=== PATIENT | female | born 1980 | race Caucasian/White ===

== ENCOUNTER 2017-02-16 09:52 | Emergency (ER) | payer OTHER ==
--- NOTE | 2017-02-16 10:37 | ED Physician Documentation ---
Headache - HISTORIAN Historian: patient - HPI Stated Complaint: migraine, nausea/vomiting Chief Complaint: Headache Additional Information: she has wildly fluc BS and last night it was 600 then 50, which she thinks caused her to have a "Migraine". she does not have migraine medicine at home. This headache is similar to all her head aches, she took opioids for this at home with no affect. she is also nauseated. Onset: hours Timing: gradual New Gradual Onset: No Exposure To: none Severity: mild Quality: similar to previous Associated Symptoms: sensitivity to light, nausea Preceding Symptoms: denies: visual disturbance Exacerbated By: light Further Comments: no - ROS NEURO/PSYCH: denies: confusion, anxiety EYES/ENT: denies: sore throat CVS/RESP: none GI/: denies: abdominal pain MS/SKIN/LYMPH: denies: muscle aches all systems neg except as marked: Yes - PAST HX Medical History: migraines Surgical History: noncontributory Immunizations: UTD Allergies/Adverse Reactions: Allergies Allergy/AdvReac Type Severity Reaction Status Date / Time No Known Allergies Allergy Verified 02/16/17 10:01 Home Medications: Ambulatory Orders Medication Instructions Recorded Levothyroxine Sodium [Levothroid] 100 mcg PO DAILY 02/06/13 Subcutaneous Insulin Pump [Omnipod] 21 units SUBCUT DAILY 08/25/15 Insulin Aspart [Novolog] 5 units SUBCUT AC15 03/27/16 Sertraline HCl [Zoloft] 100 mg PO D 03/27/16 Insulin Glargine,Hum.rec.anlog 25 unit SQ HS 09/21/16 [Lantus Solostar] Oxycodone HCl/Acetaminophen 1 tab PO QID 09/21/16 [Oxycodone-Acetaminophen 10-325] Pantoprazole Sodium [Protonix] 40 mg PO BID 09/21/16 - SOCIAL HX Smoking History: non-smoker Alcohol Use: none Drug Use: none - Family HX Family History: none - VITAL SIGNS Vital Signs: Vital Signs Temp Pulse Resp BP Pulse Ox 98.1 F 106 H 20 129/76 96 02/16/17 10:05 02/16/17 10:05 02/16/17 10:05 02/16/17 10:05 02/16/17 10:05 - REVIEWED ASSESSMENTS Nursing Assessment Reviewed: Yes Vitals Reviewed: Yes Progress - Results/Orders Results/Orders: we'll give her a blend of medicines that work for headaches, and she declares that she has a dark quiet room to go home to for the meds to work. Headache Physical Exam - EXAM General Appearance: no acute distress, alert EENT: eyes nml inspection, pharynx nml Neck: normal inspection Respiratory: no resp distress CVS: reg. 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, managed as type 1 Headache Qualifiers: Headache type: unspecified Headache chronicity pattern: acute headache Intractability: intractable Qualified Code(s): R51 - Headache Home Medications: Ambulatory Orders Levothyroxine Sodium [Levothroid] 100 mcg PO DAILY 02/06/13 Subcutaneous Insulin Pump [Omnipod] 21 units SUBCUT DAILY 08/25/15 Insulin Aspart [Novolog] 5 units SUBCUT AC15 03/27/16 Sertraline HCl [Zoloft] 100 mg PO D 03/27/16 Insulin Glargine,Hum.rec.anlog [Lantus Solostar] 25 unit SQ HS 09/21/16 Oxycodone HCl/Acetaminophen [Oxycodone-Acetaminophen 10-325] 1 tab PO QID Pantoprazole Sodium [Protonix] 40 mg PO BID 09/21/16 Condition: Good Disposition: 01 HOME, SELF-CARE Decision to Admit: NO Date of Decison to Admit: 02/16/17 Decision Time: 10:40
[2017-02-16] MEDS ORDERED: KETOROLAC TROMETHAMINE 60 MG/2 ML VIAL ONE (10:43)
[2017-02-16] MEDS ORDERED: METOCLOPRAMIDE HCL 5 MG TABLET ONE (10:44)
[2017-02-16] MEDS ORDERED: hydrOXYzine HCL 50 MG/ML VIAL IM ONE (10:47)
[2017-02-16] MEDS: KETOROLAC TROMETHAMINE 60 MG/2 ML VIAL IM ONE (10:55)
[2017-02-16] MEDS: PROMETHAZINE HCL 25 MG/ML VIAL IM ONE (10:55)
[2017-02-16] MEDS: METOCLOPRAMIDE HCL 5 MG TABLET PO ONE (10:55)
[2017-02-16] MEDS: hydrOXYzine HCL 50 MG/ML VIAL IM PRN (10:56)
[2017-02-16 11:29] VITALS: BP 112/67
== END 2017-02-16 11:27 | disposition home or self-care (01) ==
LOC: ED 09:52
DX: R51 Headache (principal)
CPT/HCPCS: J1885; J2550; J3410; 96372; 99283; 99284

== ENCOUNTER 2017-05-13 10:43 | Emergency (ER) | payer OTHER, MEDICAID ==
[2017-05-13] MEDS ORDERED: MAGNESIUM SULFATE ONE (12:11)
[2017-05-13 12:14] LABS: BASOPHILS % 0.5 (0.0-1.5); EOSINOPHILS % 1.2 % (0.0-6.8); MEAN CORPUSCULAR HEMOGLOBIN 29.9 pg (28.0-34.0); MEAN CORPUSCULAR VOLUME 86.3 fl (80.0-100.0); MONOCYTES % 2.4 % (0.0-11.0); NEUTROPHILS # 3.1 # k/uL (1.4-7.7)
[2017-05-13] MEDS: DEXAMETHASONE SOD PHOS 4 MG/ML VIAL IVP ONE (12:24)
[2017-05-13] MEDS: METOCLOPRAMIDE HCL 5 MG TABLET PO ONE (12:27)
[2017-05-13] MEDS: 0.9 % SODIUM CHLORIDE 1,000 ML IV ONE (12:27)
[2017-05-13 12:32] LABS: eGFR (African) > 60; eGFR (Non-African) > 60
[2017-05-13] MEDS: NALBUPHINE HCL 10 MG/1 ML IM ONE (13:55)
[2017-05-13] MEDS ORDERED: diphenhydrAMINE HCL 50 MG/ML VIAL ONE (14:54)
[2017-05-13] MEDS ORDERED: PROMETHAZINE HCL 25 MG/ML VIAL ONE (14:54)
[2017-05-13] MEDS: diphenhydrAMINE HCL 50 MG/ML VIAL IVP ONE (15:00)
[2017-05-13] MEDS: MAGNESIUM SULFATE IV STA ×2 (15:04)
[2017-05-13] MEDS: DEXTROSE 5% IV STA ×2 (15:04)
[2017-05-13] MEDS: PROMETHAZINE HCL 12.5 MG in 0.9 % SODIUM CHLORIDE 50 ML IV ONE (15:04)
[2017-05-13] MEDS: WATER IV STA ×2 (15:04)
[2017-05-13] MEDS: WATER IV ONE ×2 (17:19)
[2017-05-13] MEDS: DEXTROSE 5% IV ONE ×2 (17:19)
[2017-05-13] MEDS: MAGNESIUM SULFATE IV ONE ×2 (17:19)
[2017-05-13 17:23] VITALS: BP 118/80
--- NOTE | 2017-05-13 20:43 | Diagnostic Imaging Report ---
MARVEL KING [facility] [address] [facility] [address] [place], [place]. [address] Report Submission Date: May 13, 2017 3:41:32 PM CDT Patient Study Name: PRECIOUS SPANGLER Date: May 13, 2017 3:22:33 PM CDT Modality Type: CT\SR Gender: F Description: CT BRAIN W/O CONTRAST : 82 Institution: [facility] Physician: MARVEL KING CT brain without IV contrast Clinical history: Severe headache since yesterday Radiation dose DLP 357 No evidence of intracranial bleed, acute infarct, midline shift or hydrocephalus. No visible tumor mass. No visible skull fractures. Mastoid air cells and visible sinuses are clear. Impression: Normal CT brain without IV contrast Electronically signed on May 13, 2017 3:41:32 PM CDT by: Barry ESCOBEDO
--- NOTE | 2017-06-29 14:10 | ED Physician Documentation ---
Headache - HISTORIAN Historian: patient - HPI Stated Complaint: migraine Chief Complaint: Headache Additional Information: awoke this am -NO DIFFERENT THAN USUAL. usually has aura but awoke w/lozano. New Gradual Onset: No Exposure To: none Severity: mild, moderate Quality: similar to previous, pain Associated Symptoms: problems with vision, sensitivity to light, nausea. denies : vomiting Exacerbated By: light, noise, movement Further Comments: yes (pt has rx for oxycode gets xs at multi pharmacies- cleared w/DR OVERTON for tx plan - will tx but w/hold and controlled substance) - ROS NEURO/PSYCH: depression (perhaps mild). denies: confusion, anxiety EYES/ENT: denies: sore throat, difficulty swallowing CVS/RESP: denies: none GI/: denies: abdominal pain all systems neg except as marked: Yes (DM HYPOTHRYOID ANXIETY ) - PAST HX Medical History: no pertinent history ( ABOVE) Surgical History: other (LAP BAND PYL STENOSIS CO-SECT OPEN HEART FOR AORTIC STENOSIS GB CARPAL TUNNEL LT HIP) Allergies/Adverse Reactions: Allergies Allergy/AdvReac Type Severity Reaction Status Date / Time No Known Allergies Allergy Verified 06/01/17 15:14 Home Medications: Ambulatory Orders Medication Instructions Recorded Pantoprazole Sodium [Protonix] 40 mg PO BID 09/21/16 Cephalexin [Keflex] 500 mg PO QID #30 capsule 06/01/17 - SOCIAL HX Smoking History: non-smoker Alcohol Use: none Drug Use: none - Family HX Family History: none - VITAL SIGNS Vital Signs: Vital Signs Temp Pulse Resp BP Pulse Ox 98.0 F 82 16 118/80 99 05/13/17 16:10 05/13/17 16:10 05/13/17 16:10 05/13/17 16:10 05/13/17 16:10 - REVIEWED ASSESSMENTS Nursing Assessment Reviewed: Yes Vitals Reviewed: Yes ED Results Lab/Radiology - Lab Results Lab Results: Lab Results 05/13/17 05/13/17 12:10 12:10 WBC 4.30 K/ul K/ul (4.00-12.00) RBC 4.49 M/ul M/ul (3.90-5.20) Hgb 13.4 g/dL g/dL (12.0-16.0) Hct 38.7 % % (34.5-46.5) MCV 86.3 fl fl (80.0-100.0) MCH 29.9 pg pg (28.0-34.0) MCHC 34.6 g/dL g/dL (30.0-36.0) RDW 12.7 % % (11.3-14.3) Plt Count 216 K/mm3 K/mm3 (130-400) Neut % (Auto) 73.6 % % (39.0-79.0) Lymph % (Auto) 21.2 % % (16.0-50.0) [place] % (Auto) 2.4 % % (0.0-11.0) Eos % (Auto) 1.2 % % (0.0-6.8) Baso % (Auto) 0.5 (0.0-1.5) Neut # 3.1 # k/uL # k/uL (1.4-7.7) Lymph # 0.9 # k/uL # k/uL (0.6-4.0) [place] # 0.1 # k/uL # k/uL (0.0-0.9) Eos # 0.0 # k/uL # k/uL (0.0-0.6) Baso # 0.0 # k/uL # k/uL (0.0-0.5) Reactive Lymphs % 1.1 % % (0.0-5.0) Reactive Lymphs # 0.0 # k/uL # k/uL (0.0-0.8) Sodium 137 mmol/L mmol/L (136-145) Potassium 4.4 mmol/L mmol/L (3.5-5.0) Chloride 106 mmol/L mmol/L (98-110) Carbon Dioxide 32 mmol/L mmol/L (20-32) BUN 14 mg/dL mg/dL (10-26) Creatinine 0.5 mg/dL mg/dL (0.4-1.5) Estimated Creat Clear 266 Est GFR ( Amer) > 60 (60 - ) Est GFR (Non-Af Amer) > 60 (60 - ) Glucose 216 mg/dL H mg/dL (70-99) Calcium 9.6 mg/dL mg/dL (8.5-10.5) Total Bilirubin 1.1 mg/dL mg/dL (0.2-1.2) AST 16 U/L U/L (0-41) ALT 13 U/L U/L (0-45) Alkaline Phosphatase 87 U/L U/L (46-116) Total Protein 7.3 g/dL g/dL (6.0-8.5) Albumin 4.4 g/dL g/dL (3.0-5.5) - Orders Orders: ED Orders Category Date Time Status Place IV Lock 1T Care 05/13/17 12:[address] BRAIN W/O CONTRAST Stat Exams 05/13/17 Completed CBC/PLATELET/DIFF Routine Lab 05/13/17 12:10 Completed CMP Routine Lab 05/13/17 12:10 Completed 0.9 % Sodium Chloride [Normal Saline] 1,000 ml Med 05/13/17 11:55 Discontinued IV Q1H Dexamethasone Sod Phosphate [Decadron] Med 05/13/17 11:58 Discontinued 4 mg IVP NOW ONE Magnesium Sulfate Med 05/13/17 12:11 Discontinued 8 meq .ROUTE .STK-MED ONE Magnesium Sulfate 16.24 meq Med 05/13/17 15:00 Discontinued Dextrose 5 % in Water [D5w] 100 ml IV NOW Magnesium Sulfate 8 meq Med 05/13/17 11:56 Discontinued Dextrose 5 % in Water [D5w] 100 ml IV 1T Metoclopramide HCl [Reglan] Med 05/13/17 11:57 Discontinued 5 mg PO NOW ONE Nalbuphine HCl [Nubain] Med 05/13/17 13:46 Discontinued 15 mg IM NOW ONE Promethazine HCl [Phenergan] Med 05/13/17 14:54 Discontinued 25 mg .ROUTE .STK-MED ONE Promethazine HCl [Phenergan] 12.5 mg Med 05/13/17 14:54 Discontinued 0.9 % Sodium Chloride [Sodium Chloride] 50 ml IV NOW diphenhydrAMINE HCL [Benadryl] Med 05/13/17 15:00 Discontinued 25 mg IVP NOW ONE diphenhydrAMINE HCL [Benadryl] Med 05/13/17 14:54 Discontinued 50 mg .ROUTE .STK-MED ONE Headache Physical Exam - EXAM General Appearance: moderate distress EENT: no facial swelling Neck: normal inspection Respiratory: no resp distress, chest non-tender, breath sounds normal CVS: reg. rate & rhythm, heart sounds nml Abdomen: non-tender Skin: color nml, no rash. No: cyanosis, diaphoresis, pallor Extremitites: non-tender - NEURO/PSYCH Higher Functions: alert, nml speech, mood/affect nml Cranial: denies: facial droop, hearing deficit Sensorimotor: motor nml, sensation nml. denies: weakness, aphasia Discharge Clincal Impression: MIGRAINE CEPHALGIA Referrals: Tiffanie Art, PRN [Primary Care Provider] - 2 Days Home Medications: Ambulatory Orders Pantoprazole Sodium [Protonix] 40 mg PO BID 09/21/16 Cephalexin [Keflex] 500 mg PO QID #30 capsule 06/01/17 Comments: responded satis to tx Condition: Good Disposition: 01 HOME, SELF-CARE Decision to Admit: NO Decision Time: 16:04
== END 2017-05-13 16:10 | disposition home or self-care (01) ==
LOC: ED 10:43
DX: G43.809 Other migraine, not intractable, without status migrainosus (principal)
CPT/HCPCS: 70450; 80053; 85025; J1100; J1200; J2300; J2550; J3475; J7030; 96365; 96372; 96375; 99283; 99284; S1016

== ENCOUNTER 2017-06-01 14:40 | Emergency (ER) | payer OTHER, MEDICAID ==
[2017-06-01 15:13] VITALS: BP 130/70
[2017-06-01] MEDS ORDERED: DIPH,PERTUSS(ACELL),TET VAC/PF 0.5 ML DISP.SYRIN IM ONE (15:16)
--- NOTE | 2017-06-01 15:35 | ED Physician Documentation ---
General Adult - HISTORIAN Historian: patient, child - HPI Stated Complaint: laceration Chief Complaint: Laceration/Recheck/Suture Additional Information: cutting carpet box knife lac lt forearm flexor surface approx 1.2 cm -occ approx 1000hrs. Timing: still present (continued to use arm w/open wound) Severity: mild, moderate - ROS CONST: no problems CVS/RESP: none GI/: none MS/SKIN/LYMPH: none NEURO/PSYCH: denies: headache, fainting, dizziness - PAST HX Past History: other (diabetes lo thryoid congenital pyloric stenosis) Immunizations: denies: tetanus, UTD Allergies/Adverse Reactions: Allergies Allergy/AdvReac Type Severity Reaction Status Date / Time No Known Allergies Allergy Verified 06/01/17 15:14 Home Medications: Ambulatory Orders Medication Instructions Recorded Pantoprazole Sodium [Protonix] 40 mg PO BID 09/21/16 Cephalexin [Keflex] 500 mg PO QID #30 capsule 06/01/17 - SOCIAL HX Smoking History: non-smoker Alcohol Use: none Drug Use: none - FAMILY HX Family History: No - VITAL SIGNS Vital Signs: Vital Signs Temp Pulse Resp BP Pulse Ox 111 H 14 130/70 96 06/01/17 14:46 06/01/17 14:46 06/01/17 14:46 06/01/17 14:46 - REVIEWED ASSESSMENTS Nursing Assessment Reviewed: Yes Vitals Reviewed: Yes Procedures Wound Location: upper extremity Wound's Depth, Shape: superficial, linear Wound Explored: wkound to sink pt washed irrigated w/soap water copiously then cleansed and irrigated w/betadine Betadine Prep?: Yes Wound Repaired With: steri-strips, Dermabond Sterile Dressing Applied?: Yes Splint Applied?: No Sling Applied?: No ED Results Lab/Radiology - Orders Orders: ED Orders Category Date Time Status Diph,Pertuss(Acell),Tet Vac/Pf [Adacel] Med 06/01/17 15:16 Discontinued 0.5 ml IM .STK-MED ONE General Adult Physical Exam - PHYSICAL EXAM GENERAL APPEARANCE: mild distress RESPIRATORY: no resp distress, chest non-tender, breath sounds normal. No: wheezes, rales, rhonchi CVS: reg rate & rhythm, heart sounds normal ABDOMEN: soft, non-tender EXTREMITIES: other (aforementioned lac lt flexorsurface mid forearm) NEURO: oriented X3, CN's nml as tested Discharge Clincal Impression: Laceration of left forearm Referrals: Tiffanie Art, PRN [Primary Care Provider] - 2 Days Home Medications: Ambulatory Orders Pantoprazole Sodium [Protonix] 40 mg PO BID 09/21/16 Cephalexin [Keflex] 500 mg PO QID #30 capsule 06/01/17 Comments: keep clean dry do not remove steri strips for approx 5 days. adacel o.5cc adm per nurse as ordered Condition: Good Disposition: 01 HOME, SELF-CARE Decision to Admit: NO Decision Time: 15:34
== END 2017-06-01 15:23 | disposition home or self-care (01) ==
LOC: ED 14:40
DX: S51.812A Laceration without foreign body of left forearm, initial encounter (principal); X58.XXXA Exposure to other specified factors, initial encounter; Y93.9 Activity, unspecified; Y99.9 Unspecified external cause status
CPT/HCPCS: 12001; 90471; 90715; 99283

== ENCOUNTER 2017-07-22 08:41 | Outpatient (CLI) | payer OTHER | END 2017-07-22 08:42 | LOC: LAB 08:41 | PROVIDERS: ATTEND Internal Medicine | DX: E24.9 Cushing's syndrome, unspecified (principal) | CPT/HCPCS: 36415; 82533 ==

== ENCOUNTER 2017-09-28 13:26 | Emergency (ER) | payer OTHER ==
--- NOTE | 2017-09-28 13:51 | ED Physician Documentation ---
Lower Extremity Injury - HISTORIAN Historian: patient, child - HPI Stated Complaint: L foot pain Chief Complaint: Lower Extremity Injury Additional Information: heavy cup dropped dorsum lt foot 2 d ago=-prog pain.. bs high past few daYS- 400 today Where: home Severity: moderate Context: direct blow Associated Symptoms:: tingling (slight lt great tod and phalynx) Modifying Factors:: pain on movement - ROS CONST: no problems CVS/RESP: none GI/: denies: problems urinating MS/SKIN/LYMPH: none NEURO: denies: headache, head injury - PAST HX Past History: diabetes Type 1, other (gerd ch back pain) Allergies/Adverse Reactions: Allergies Allergy/AdvReac Type Severity Reaction Status Date / Time No Known Allergies Allergy Verified 09/28/17 13:46 Home Medications: Ambulatory Orders Medication Instructions Recorded Pantoprazole Sodium [Protonix] 40 mg PO BID 09/21/16 Cephalexin [Keflex] 500 mg PO QID #30 capsule 06/01/17 Insulin Aspart [Novolog Flexpen] 150 - 600 09/28/17 Insulin Glargine,Hum.rec.anlog 40 09/28/17 [Lantus Solostar] PARoxetine HCL [Paxil] 09/28/17 Ranitidine HCl [Zantac] PRN MDD 150 mg 09/28/17 - SOCIAL HX Smoking History: non-smoker Alcohol Use: none Drug Use: none - FAMILY HX Family History: no significant history - VITAL SIGNS Vital Signs: Vital Signs Temp Pulse Resp BP Pulse Ox 98.3 F 93 H 19 127/73 95 09/28/17 13:27 09/28/17 13:27 09/28/17 13:27 09/28/17 13:27 09/28/17 13:27 - REVIEWED ASSESSMENTS Nursing Assessment Reviewed: Yes Vitals Reviewed: Yes ED Results Lab/Radiology - Radiology Radiology Impressions: foot = no fracture-suspect bs 400 aggravates - Orders Orders: ED Orders Category Date Time Status FOOT 3 VIEWS OR MORE [RAD] Stat Exams 09/28/17 Completed Lower Extremities Injury Phy - Physical Exam General Appearance: other (rt foot pain) Gait: limited by pain Neuro/Vascular/Tendon: no vascular compromise, motor nml, sensation nml. No: abnml color, abnml warmth, abnml cap refill Head/ENT: nml inspection Neck/Back: nml inspection, non-tender Resp/CVS: chest non-tender, breath sounds nml, heart sounds nml Abdomen: non-tender Discharge Clincal Impression: contusion lt foot, uncontrolled diabetes-w/neuropathy, hx recent thrush-oral Referrals: Tiffanie Art PRN [Primary Care Provider] - 2 Days Comments: need diabetic control Condition: Fair Disposition: 01 HOME, SELF-CARE Decision to Admit: NO Decision Time: 14:23
--- NOTE | 2017-09-28 14:18 | Diagnostic Imaging Report ---
MARVEL KING [facility] [address] [address] Report Submission Date: Sep 28, 2017 2:06:52 PM CDT Patient Study Name: PRECIOUS SPANGLER Date: Sep 28, 2017 1:55:00 PM CDT Modality Type: CR Gender: F Description: LOWER EXTREMITY : 82 Institution: [facility] Physician: MARVEL KING Examination: Plain film foot History: Injury Findings: 3 views of the foot demonstrates normal cortical margins. No fracture or dislocation. Posterior calcaneal spur. No soft tissue swelling. No joint effusion. Impression: No acute osseous process. Electronically signed on Sep 28, 2017 2:06:52 PM CDT by: Joseph ESCOBEDO
[2017-09-28 14:36] VITALS: BP 100/60
== END 2017-09-28 14:32 | disposition home or self-care (01) ==
LOC: ED 13:26
DX: S90.32XA Contusion of left foot, initial encounter (principal); X58.XXXA Exposure to other specified factors, initial encounter; Y93.9 Activity, unspecified; Y99.9 Unspecified external cause status; E11.40 Type 2 diabetes mellitus with diabetic neuropathy, unspecified
CPT/HCPCS: 73630; 99283

== ENCOUNTER 2017-10-17 14:29 | Emergency (ER) | payer OTHER ==
[2017-10-17] MEDS ORDERED: 0.9 % SODIUM CHLORIDE 1,000 ML IV ONE ×2 (14:55→15:11)
[2017-10-17] MEDS ORDERED: ONDANSETRON HCL/PF 4 MG/ 2ML VIAL ONE (14:55)
[2017-10-17] MEDS ORDERED: ONDANSETRON HCL/PF 4 MG/ 2ML VIAL IVP ONE (15:06)
[2017-10-17] MEDS ORDERED: BUTORPHANOL TARTRATE 2 MG/ML VIAL IV ONE (15:11)
[2017-10-17 15:27] LABS: BASOPHILS % 0.2 (0.0-1.5); EOSINOPHILS % 0.3 % (0.0-6.8); MEAN CORPUSCULAR HEMOGLOBIN 28.7 pg (28.0-34.0); MEAN CORPUSCULAR VOLUME 87.1 fl (80.0-100.0); MONOCYTES % 2.7 % (0.0-11.0); NEUTROPHILS # 5.5 # k/uL (1.4-7.7)
[2017-10-17 15:45] LABS: eGFR (African) > 60; eGFR (Non-African) > 60
[2017-10-17] MEDS ORDERED: HYDROcodone /APAP 5/325 1 EACH TABLET PO ONE (16:57)
--- NOTE | 2017-10-17 17:01 | ED Physician Documentation ---
General Adult - HISTORIAN Historian: patient - HPI Stated Complaint: nausea, GARCIA, body aches Chief Complaint: General Adult Additional Information: nausea headache ache all over. pt is severe diabetic very hard to control but bs now under 200 and was at home this am. pt is on oxycodone 10/325 tid x 1 year and is out till in am. suspect pain receptors up graded severly Onset: days ago (2) Timing: still present Severity: moderate (assoc nausea headache) - ROS CONST: weakness EYES/ENT: denies: problems with vision CVS/RESP: none GI/: abdominal pain, nausea MS/SKIN/LYMPH: none, neck pain, joint pain (ache all over) NEURO/PSYCH: headache, depression. denies: difficulty walking, difficulty with speech, anxiety - PAST HX Past History: other (diabetes lko thryoid) Other History: diabetes Type 1 Surgeries/Procedures: cholecystectomy, other (aortic repain pyloric stenosis) Immunizations: UTD Allergies/Adverse Reactions: Allergies Allergy/AdvReac Type Severity Reaction Status Date / Time No Known Allergies Allergy Verified 10/17/17 14:51 Home Medications: Ambulatory Orders Medication Instructions Recorded Pantoprazole Sodium [Protonix] 40 mg PO BID 09/21/16 Insulin Aspart [Novolog Flexpen] 150 - 600 units SUBCUT AC15 09/28/17 Insulin Glargine,Hum.rec.anlog 40 units SUBCUT HS 09/28/17 [Lantus Solostar] PARoxetine HCL [Paxil] 10 mg PO DAILY 09/28/17 Ranitidine HCl [Zantac] 75 mg PO DAILY PRN MDD 150 mg 09/28/17 - SOCIAL HX Smoking History: non-smoker Alcohol Use: none Drug Use: none - FAMILY HX Family History: No - VITAL SIGNS Vital Signs: Vital Signs Temp Pulse Resp BP Pulse Ox 99.2 F 122 H 18 105/66 98 10/17/17 14:45 10/17/17 14:45 10/17/17 14:45 10/17/17 14:45 10/17/17 14:45 - REVIEWED ASSESSMENTS Nursing Assessment Reviewed: Yes Vitals Reviewed: Yes ED Results Lab/Radiology - Lab Results Lab Results: Lab Results 10/17/17 10/17/17 10/17/17 15:19 15:19 15:18 WBC 6.30 K/ul K/ul (4.00-12.00) RBC 4.82 M/ul M/ul (3.90-5.20) Hgb 13.8 g/dL g/dL (12.0-16.0) Hct 42.0 % % (34.5-46.5) MCV 87.1 fl fl (80.0-100.0) MCH 28.7 pg pg (28.0-34.0) MCHC 32.9 g/dL g/dL (30.0-36.0) RDW 12.4 % % (11.3-14.3) Plt Count 221 K/mm3 K/mm3 (130-400) Neut % (Auto) 87.6 % H % (39.0-79.0) Lymph % (Auto) 8.3 % L % (16.0-50.0) [place] % (Auto) 2.7 % % (0.0-11.0) Eos % (Auto) 0.3 % % (0.0-6.8) Baso % (Auto) 0.2 (0.0-1.5) Neut # (Auto) 5.5 # k/uL # k/uL (1.4-7.7) Lymph # (Auto) 0.5 # k/uL L # k/uL (0.6-4.0) [place] # (Auto) 0.2 # k/uL # k/uL (0.0-0.9) Eos # (Auto) 0.0 # k/uL # k/uL (0.0-0.6) Baso # (Auto) 0.0 # k/uL # k/uL (0.0-0.5) Reactive Lymphs % 0.9 % % (0.0-5.0) Reactive Lymphs # 0.1 # k/uL # k/uL (0.0-0.8) PT 11.0 Seconds Seconds (9.4-11.6) INR 1.05 (0.9-1.2) Sodium 129 mmol/L L mmol/L (136-145) Potassium 4.0 mmol/L mmol/L (3.5-5.1) Chloride 97 mmol/L L mmol/L (98-107) Carbon Dioxide 25 mmol/L mmol/L (22-30) BUN 9 mg/dL mg/dL (7-17) Creatinine 0.60 mg/dL mg/dL (0.52-1.04) Estimated Creat Clear 216 Est GFR ( Amer) > 60 (60 - ) Est GFR (Non-Af Amer) > 60 (60 - ) Glucose 180 mg/dL H mg/dL (74-106) Calcium 8.5 mg/dL mg/dL (8.4-10.2) Total Bilirubin 1.5 mg/dL H mg/dL (0.2-1.3) AST 63 U/L H U/L (15-46) ALT 58 U/L U/L (13-69) Alkaline Phosphatase 101 U/L U/L (38-126) Total Protein 7.1 g/dL g/dL (6.3-8.2) Albumin 3.6 g/dL g/dL (3.5-5.0) - Orders Orders: ED Orders Category Date Time Status Place IV Lock 1T Care 10/17/17 15:06 Active CHEST P.A.&LAT 2 VIEWS [RAD] Stat Exams 10/17/17 Taken CBC/PLATELET/DIFF Routine Lab 10/17/17 15:19 Completed CMP Routine Lab 10/17/17 15:18 Completed INFLUENZA A&B Routine Lab 10/17/17 15:11 Ordered INFLUENZA A&B Stat Lab 10/17/17 15:58 Ordered PT-INR Routine Lab 10/17/17 15:19 Completed URINALYSIS Routine Lab 10/17/17 Ordered 0.9 % Sodium Chloride [Normal Saline] 1,000 ml Med 10/17/17 14:55 Discontinued IV .STK-MED 0.9 % Sodium Chloride [Normal Saline] 1,000 ml Med 10/17/17 15:11 Discontinued IV Q1H Butorphanol Tartrate [Stadol] Med 10/17/17 15:11 Discontinued 2 mg IV NOW ONE HYDROcodone /APAP 5/325 [[place] 5/325] Med 10/17/17 16:57 Once 2 each PO NOW ONE Ondansetron HCl/Pf [Zofran 4 mg/2 ml] Med 10/17/17 14:55 Discontinued 4 mg .ROUTE .STK-MED ONE Ondansetron HCl/Pf [Zofran 4 mg/2 ml] Med 11/18/17 15:06 Discontinued 4 mg IVP NOW ONE General Adult Physical Exam - PHYSICAL EXAM GENERAL APPEARANCE: moderate distress EENT: eye inspection normal NECK: normal inspection, supple. No: thyromegaly RESPIRATORY: no resp distress, chest non-tender, breath sounds normal CVS: reg rate & rhythm, heart sounds normal ABDOMEN: soft, tenderness (very slight genl no guarding) SKIN: warm/dry, normal color. No: cyanosis, diaphoresis, jaundice EXTREMITIES: non-tender, normal range of motion, no evidence of injury, no edema NEURO: oriented X3, motor nml, sensation nml, mood/affect nml Discharge Clincal Impression: viral flu, chronic pain pt Referrals: Primary Doctor,No [Primary Care Provider] - 2 Days Comments: rec attempt get off oxycodone Condition: Good Disposition: 01 HOME, SELF-CARE Decision to Admit: NO Decision Time: 17:08
[2017-10-17 17:25] VITALS: BP 113/67
--- NOTE | 2017-10-17 17:35 | Diagnostic Imaging Report ---
MARVEL KING [facility] [address] [facility] [address] [place], [place]. 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 History: Evaluate lung cespedes. Comparison exam: None provided Findings: PA lateral chest demonstrate a normal cardiac and mediastinal silhouette. Sternotomy wires. No focal infiltrate. No blunting of the costophrenic margins. Osseous structures are appropriate for age. Impression: No acute pulmonary process. Electronically signed on Oct 17, 2017 3:48:25 PM WEB MERCHANT by: Joseph ESCOBEDO
== END 2017-10-17 17:20 | disposition home or self-care (01) ==
LOC: ED 14:29
DX: J11.1 Influenza due to unidentified influenza virus with other respiratory manifestations (principal); G89.29 Other chronic pain
CPT/HCPCS: 71020; 80053; 85025; 85610; 87400; A9270; J0595; J2405; J7030; 96361; 96374; 96375; 99283; S1016

== ENCOUNTER 2017-12-09 14:04 | Emergency (ER) | payer OTHER ==
[2017-12-09 14:36] VITALS: BP 135/83
--- NOTE | 2017-12-09 14:55 | ED Physician Documentation ---
Sore Throat/Dental Pain - HISTORIAN Historian: patient - HPI Stated Complaint: Sore Throat Chief Complaint: Sore Throat Additional Information: sore throat x few days, had white spot on tonsil few days ago, ears feel full. no other complaints, family member with strep. Onset: days ago Context: Possible Infection Associated Symptoms: sore throat, mild. denies: fever, chills Worsened By: nothing Further Comments: no - ROS CONST: no problems CVS/RESP: none GI/: denies: problems urinating, nausea, vomiting MS/SKIN/LYMPH: denies: muscle aches, rash NEURO/PSYCH: none - PAST HX Past History: none Other History: diabetes Type 1 Allergies/Adverse Reactions: Allergies Allergy/AdvReac Type Severity Reaction Status Date / Time No Known Allergies Allergy Verified 12/09/17 14:37 Home Medications: Ambulatory Orders Medication Instructions Recorded Insulin Aspart [Novolog Flexpen] 150 - 600 units SUBCUT AC15 09/28/17 PARoxetine HCL [Paxil] 60 mg PO DAILY 09/28/17 Gabapentin [Neurontin] 300 mg PO TID 12/09/17 Insulin Glargine,Hum.rec.anlog 35 units SQ HS 12/09/17 [Lantus Solostar] Levothyroxine Sodium [Unithroid] 100 mcg PO DAILY 12/09/17 - SOCIAL HX Smoking History: non-smoker Alcohol Use: none Drug Use: none - FAMILY HX Family History: No - VITAL SIGNS Vital Signs: Vital Signs Temp Pulse Resp BP Pulse Ox 98.2 F 128 H 20 135/83 95 12/09/17 14:10 12/09/17 14:10 12/09/17 14:10 12/09/17 14:10 12/09/17 14:10 - REVIEWED ASSESSMENTS Nursing Assessment Reviewed: Yes Vitals Reviewed: Yes ED Results Lab/Radiology - Lab Results Lab Results: RS (-) Flu (-) - Orders Orders: ED Orders Category Date Time Status INFLUENZA A&B Stat Lab 12/09/17 14:35 Ordered Rapid Strep [GRP A STREP SCREEN] Stat Lab 12/09/17 Ordered Sore throat Physical Exam - EXAM General Appearance: no acute distress, alert Head/Neck: head nml inspection, trachea midline, no lymphadenopathy, thyroid nml. No: neck mass/swelling Eyes: eyes nml inspection Mouth/Throat: lips nml, gums nml, pharynx nml, voice nml, no drooling, no air way problems, no thrush, membranes nml Ear/Nose: nml inspection Respiratory: no resp. distress Abdomen: soft Extremities: non-tender Skin: warm/dry, normal color Neuro/Psych: oriented x3, mood/affect nml Discharge Clincal Impression: Common cold virus, Viral URI Referrals: Tiffanie Art, PRN [Primary Care Provider] - 2 Days Condition: Stable Disposition: 01 HOME, SELF-CARE Decision to Admit: NO Date of Decison to Admit: 12/09/17 Decision Time: 14:56
== END 2017-12-09 15:09 | disposition home or self-care (01) ==
LOC: ED 14:04
DX: J06.9 Acute upper respiratory infection, unspecified (principal)
CPT/HCPCS: 87070; 87400; 87880; 99282

== ENCOUNTER 2018-03-27 14:49 | Emergency (ER) | payer OTHER ==
[2018-03-27 15:04] VITALS: BP 121/91
--- NOTE | 2018-03-27 15:50 | ED Physician Documentation ---
Lower Extremity Injury - HISTORIAN Historian: patient - HPI Stated Complaint: L foot paint Chief Complaint: Foot Injury Additional Information: Hand weights fell on foot two days ago. X rays at [facility] yesterday said to be negative but foot still hurts. Also has lac's on first toe from broken make up bottle. Prescribed keflex yesterday but has not taken it. Takes three percocet daily for chronic pain. Wants additional pain med for foot. In lieu of that, will stop percocet if she is give a few vicodin for her foot pain. HX lap band, DM. - ROS CONST: no problems - PAST HX Past History: diabetes Type 1, other (chronic pain) Allergies/Adverse Reactions: Allergies Allergy/AdvReac Type Severity Reaction Status Date / Time No Known Allergies Allergy Verified 03/27/18 15:05 Home Medications: Ambulatory Orders Medication Instructions Recorded Insulin Aspart [Novolog Flexpen] 150 - 600 units SUBCUT AC15 09/28/17 PARoxetine HCL [Paxil] 60 mg PO DAILY 09/28/17 Insulin Glargine,Hum.rec.anlog 35 units SQ HS 12/09/17 [Lantus Solostar] Levothyroxine Sodium [Unithroid] 100 mcg PO DAILY 12/09/17 Cyclobenzaprine HCl [Flexeril] 1 tab PO PRN PRN 03/27/18 Hydrocodone/Acetaminophen [[place] 1 tab PO Q4H PRN #10 03/27/18 5-325 Tablet] LORazepam [Ativan] 1 tab PO PRN PRN 03/27/18 Oxycodone HCl/Acetaminophen 1 tab PO PRN PRN 03/27/18 [Percocet 2.5/325] - SOCIAL HX Smoking History: cigarettes - FAMILY HX Family History: no significant history - VITAL SIGNS Vital Signs: Vital Signs Temp Pulse Resp BP Pulse Ox 97.2 F L 120 H 120 H 121/91 96 03/27/18 14:55 03/27/18 14:55 03/27/18 14:55 03/27/18 14:55 03/27/18 14:55 - REVIEWED ASSESSMENTS Nursing Assessment Reviewed: Yes Vitals Reviewed: Yes Progress - Progress Progress: Patient Study Name: PRECIOUS SPANGLER Date: Mar 27, 2018 3:07:35 PM CDT Modality Type: DX Gender: F Description: LOWER EXTREMITY : 82 Institution: [facility] Physician: TOMAS FUENTES - ER Left foot, 3 views History: Foot pain, attention 1st toe Findings: The osseous, joint and soft tissue structures are normal. Impression: Normal. Electronically signed on Mar 27, 2018 3:35:48 PM CDT by: Jose Tomas ED Results Lab/Radiology - Orders Orders: ED Orders Category Date Time Status XRAY FOOT [FOOT 3 VIEWS OR MORE] [RAD] Stat Exams 03/27/18 Ordered Lower Extremities Injury Phy - Physical Exam General Appearance: mild distress, anxious, other (2 cm healing lac plantar surface 1st toe. Irregular 1.5 cm lac dorsal surface 1st toe medial to nail. Bth clean ) Hips: bilateral hip: normal range of motion (gait), no evidence of injury Legs: bilateral: normal inspection, no evidence of injury Knees: bilateral: normal inspection, no evidence of injury Ankle: bilateral: normal inspection, no evidence of injury Foot: right foot: normal inspection, no evidence of injury, left foot: normal range of motion, nail injury (subungual ecchymosis), swelling (dorsal foot) Gait: antalgic gait Neuro/Vascular/Tendon: no vascular compromise, motor nml, sensation nml Head/ENT: nml inspection Neck/Back: nml inspection Resp/CVS: no resp. distress Discharge Clincal Impression: Contusion of foot, left Qualifiers: Encounter type: initial encounter Qualified Code(s): S90.32XA - Contusion of left foot, initial encounter Prescriptions: Hydrocodone/Acetaminophen [[place] 5-325 Tablet] 1 tab PO Q4H PRN #10 PRN Reason: Pain Referrals: Tiffanie Art PRN [Primary Care Provider] - 2 Days Condition: Good Disposition: 01 HOME, SELF-CARE Decision to Admit: NO Decision Time: 15:50
--- NOTE | 2018-03-27 17:12 | Diagnostic Imaging Report ---
[facility] [address] [facility].[address] [address] Report Submission Date: Mar 27, 2018 3:35:48 PM CDT Patient Study Name: PRECIOUS SPANGLER Date: Mar 27, 2018 3:07:35 PM CDT Modality Type: DX Gender: F Description: LOWER EXTREMITY : 82 Institution: [facility] Physician: TOMAS FUENTES Left foot, 3 views History: Foot pain, attention 1st toe Findings: The osseous, joint and soft tissue structures are normal. Impression: Normal. Electronically signed on Mar 27, 2018 3:35:48 PM CDT by: Jose ESCOBEDO
== END 2018-03-27 15:50 | disposition home or self-care (01) ==
LOC: ED 14:49
DX: S90.32XA Contusion of left foot, initial encounter (principal); Y92.9 Unspecified place or not applicable
CPT/HCPCS: 73630; 99283

== ENCOUNTER 2018-04-28 11:17 | Emergency (ER) | payer OTHER ==
[2018-04-28] MEDS ORDERED: 0.9 % SODIUM CHLORIDE 1,000 ML IV ONE ×2 (11:33→11:34)
--- NOTE | 2018-04-28 11:47 | ED Physician Documentation ---
General Adult - HISTORIAN Historian: patient - HPI Stated Complaint: elevated glucose Chief Complaint: General Adult Onset: days ago (3) Timing: still present Severity: moderate Further Comments: yes (Pt is a 38 yo female with DM Type I and hx ketoacidosis, who ran out of insulin several days ago and has had trouble getting her insurance to authorize a refill. Pt can refill in 2 days, and was trying to make it till then, but has been getting progressively ill. Pt "feels bad all over," she has been eating and drinking and voiding a lot, she says, and now also has nausea and a headache. She has been getting a little short of breath. Other hx includes hypothyroidism and heart surgery in the s to correct supraventricular aortic stenosis. Pt is taking Cipro for recent sinus infection.) - ROS CONST: weakness, other (malaise) EYES/ENT: other (recent sinus infection) CVS/RESP: shortness of breath (mild, occasional) GI/: problems urinating (urinary frequency), vomiting, nausea MS/SKIN/LYMPH: none NEURO/PSYCH: headache (mild) - PAST HX Past History: other (DM Type I with hx ketoacidosis, ) Allergies/Adverse Reactions: Allergies Allergy/AdvReac Type Severity Reaction Status Date / Time No Known Allergies Allergy Verified 04/28/18 12:42 Home Medications: Ambulatory Orders Medication Instructions Recorded Insulin Aspart [Novolog Flexpen] 150 - 600 units SUBCUT AC15 09/28/17 PARoxetine HCL [Paxil] 60 mg PO DAILY 09/28/17 Insulin Glargine,Hum.rec.anlog 40 units SQ HS 12/09/17 [Lantus Solostar] Levothyroxine Sodium [Unithroid] 100 mcg PO DAILY 12/09/17 Cyclobenzaprine HCl [Flexeril] 1 tab PO PRN PRN 03/27/18 LORazepam [Ativan] 1 tab PO PRN PRN 03/27/18 Oxycodone HCl/Acetaminophen 1 tab PO PRN PRN 03/27/18 [Percocet 2.5/325] Ciprofloxacin HCl [Cipro] 04/28/18 Fluconazole [Diflucan] 150 mg PO D 04/28/18 Ondansetron HCl Rapdis [Zofran ODT] 4 mg PO PRN PRN 04/28/18 - SOCIAL HX Smoking History: non-smoker - FAMILY HX Family History: No (Unk) - VITAL SIGNS Vital Signs: Vital Signs Temp Pulse Resp BP Pulse Ox 121/91 03/27/18 15:50 Progress - Progress Progress: NS 1 L IVF x 2 Zofran 4 mg IV ABG: pH: 7.15 pCO2: 26; pO2: 85; HCO3: 10.6; B.E.: -18.2; TCO2: 9.9; sAO2 : 96.7 Phenergan 25 mg IV (in IVF) Regular insulin 10 units IV Toradol 15 mg IV Insulin drip @ 12 units/hr transfer to [facility]. Dr. Jules Padilla. ED Results Lab/Radiology - Orders Orders: ED Orders Category Date Time Status Arterial Blood Gas 1T Care 04/28/18 11:[address] IV Lock 1T Care 04/28/18 11:34 Active CBC/PLATELET/DIFF Routine Lab 04/28/18 Ordered CMP Routine Lab 04/28/18 Ordered 0.9 % Sodium Chloride [Normal Saline] 1,000 ml Med 04/28/18 11:33 Discontinued IV .STK-MED 0.9 % Sodium Chloride [Normal Saline] 1,000 ml Med 04/28/18 11:34 Active IV Q1H General Adult Physical Exam - PHYSICAL EXAM GENERAL APPEARANCE: moderate distress EENT: eye inspection normal, pharynx normal NECK: normal inspection, supple RESPIRATORY: no resp distress, chest non-tender, breath sounds normal CVS: heart sounds normal, tachycardia ABDOMEN: soft, normal bowel sounds, no distension, non-tender BACK: normal inspection, no CVA tenderness SKIN: warm/dry, normal color EXTREMITIES: non-tender, normal range of motion, no evidence of injury NEURO: oriented X3, motor nml, sensation nml Discharge Clincal Impression: Diabetic Ketoacidosis Referrals: Tiffanie Art PRN [Primary Care Provider] - Condition: Stable Disposition: 02 XFER [facility] Decision to Admit: NO Decision Time: 12:43
[2018-04-28] MEDS ORDERED: ONDANSETRON HCL/PF 4 MG/ 2ML VIAL IVP ONE (11:48)
[2018-04-28 11:55] LABS: BASOPHILS % 0.3 (0.0-1.5); EOSINOPHILS % 0.3 % (0.0-6.8); MEAN CORPUSCULAR HEMOGLOBIN 29.1 pg (28.0-34.0); MEAN CORPUSCULAR VOLUME 92.2 fl (80.0-100.0); MONOCYTES % 2.1 % (0.0-11.0); NEUTROPHILS # 8.6 # k/uL (1.4-7.7)
[2018-04-28 12:08] LABS: eGFR (African) > 60; eGFR (Non-African) > 60
[2018-04-28] MEDS ORDERED: INSULIN REGULAR, HUMAN 100 UNIT/ML 3ML VIAL IV ONE (12:11)
[2018-04-28] MEDS ORDERED: POTASSIUM CHLORIDE 20 MEQ TABLET.ER PO ONE (12:12)
[2018-04-28] MEDS ORDERED: PROMETHAZINE HCL 25 MG/ML VIAL ONE (12:25)
[2018-04-28] MEDS ORDERED: PROMETHAZINE HCL 25 MG in 0.9 % SODIUM CHLORIDE 50 ML IV ONE (12:26)
[2018-04-28] MEDS ORDERED: INSULIN REGULAR, HUMAN 100 UNIT in 0.9 % SODIUM CHLORIDE 100 ML IV ONE ×2 (12:39)
[2018-04-28] MEDS ORDERED: KETOROLAC TROMETHAMINE 30 MG/1ML VIAL IVP ONE (13:31)
[2018-04-28 14:22] VITALS: BP 113/72
[2018-04-28 14:30] LABS: APPEARANCE,URINE CLEAR (CLEAR); COLOR,URINE YELLOW (YELLOW)
[2018-04-28 14:31] LABS: OCCULT BLOOD,URINE TRACE-LYSED (NEGATIVE); UROBILINOGEN URINE 0.2 Eu (0.2-1.0)
== END 2018-04-28 14:15 | disposition short-term general hospital (02) ==
LOC: ED 11:17
DX: E10.10 Type 1 diabetes mellitus with ketoacidosis without coma (principal)
CPT/HCPCS: 80053; 81002; 85025; J1815; J1885; J2405; J2550; J7030; 96365; 96367; 96374; 96375; 99285; S1016

== ENCOUNTER 2018-05-13 14:48 | Emergency (ER) | payer OTHER ==
[2018-05-13] MEDS ORDERED: KETOROLAC TROMETHAMINE 60 MG/2 ML VIAL IM ONE (16:00)
--- NOTE | 2018-05-13 17:03 | ED Physician Documentation ---
Upper Extremity Problem - HISTORIAN Historian: patient - HPI Stated Complaint: L Shoulder pain Chief Complaint: Upper Extremity Problem Location: L shoulder Onset: days ago Timing: still present Duration: constant Further Comments: yes (38 year old female patient presents with complaint of left shoulder pain. Reports "frozen" shoulder 2 years ago; fall 1 year ago; no recent injury; denies heavy lifting. States she took ibuprofen this morning.) - ROS CONST: no problems EYES/ENT: none CVS/RESP: none GI/: none MS/SKIN/LYMPH: joint pain (left shoulder) NEURO/PSYCH: denies: headache, fainting, dizziness, anxiety, depression, other - PAST HX Past History: diabetes Type 1 Other History: other (chronic back pain; ) Surgeries/Procedures: other (lap band) Allergies/Adverse Reactions: Allergies Allergy/AdvReac Type Severity Reaction Status Date / Time No Known Allergies Allergy Verified 05/13/18 15:28 Home Medications: Ambulatory Orders Medication Instructions Recorded Insulin Aspart [Novolog Flexpen] 150 - 600 units SUBCUT AC15 09/28/17 Insulin Glargine,Hum.rec.anlog 40 units SQ HS 12/09/17 [Lantus Solostar] Levothyroxine Sodium [Unithroid] 100 mcg PO DAILY 12/09/17 Cyclobenzaprine HCl [Flexeril] 1 tab PO PRN PRN 03/27/18 Oxycodone HCl/Acetaminophen 1 tab PO PRN PRN 03/27/18 [Percocet 2.5/325] Gabapentin [Neurontin] 1 tab PO TID 05/13/18 - SOCIAL HX Smoking History: cigarettes - FAMILY HX Family History: denies: none - VITAL SIGNS Vital Signs: Vital Signs Temp Pulse Resp BP Pulse Ox 98.1 F 108 H 17 112/70 98 05/13/18 17:14 05/13/18 17:14 05/13/18 17:14 05/13/18 17:14 05/13/18 17:14 - REVIEWED ASSESSMENTS Nursing Assessment Reviewed: Yes Vitals Reviewed: Yes Progress - Progress Progress: Patient stated her brother was a physician at [facility]; states he told her to come to the Er for pain medication. Patient requesting ultram Rx for pain; Patient with 180 Cyclobenzaprine 10mg filled on 05/06/18; #90 Percocet 10mg/325mg tabs; patient on Paroxetine - will not prescribe ultram with SSRI. Patient states the lid came off her percocet, they fell down the sink and she only has 9 left. ED Results Lab/Radiology - Orders Orders: ED Orders Category Date Time Status SHOULDER 2 VIEWS OR MORE [RAD] Stat Exams 05/13/18 Taken Ketorolac Tromethamine [Toradol] Med 05/13/18 16:00 Discontinued 60 mg IM NOW ONE Upper Extremity Problem - EXAM General Appearance: no acute distress, alert Skin: normal color, warm/dry, NR, INT, PAL, DR Shoulder Exam: normal inspection, non-tender, no evidence of injury, normal ROM Elbow/Forearm Exam: normal inspection, non-tender, no evidence of injury, normal ROM CVS: reg rate & rhythm Peripheral: sensation nml, motor nml Central: oriented X3, motor nml, sensation nml, mood/affect nml Respiratory: no resp. distress Discharge Clincal Impression: Drug-seeking behavior Left shoulder pain Qualifiers: Chronicity: unspecified Qualified Code(s): M25.512 - Pain in left shoulder Referrals: Tiffanie Art, PRN [Primary Care Provider] - 2 Days Additional Instructions: Use your PRN flexeril and Percocet per prescription directions for pain. You may sparingly use ibuprofen as needed for pain. Try over the counter icy hot; biofreeze or aspercream topical for pain per package directions. Follow up with your primary care doctor if pain continues Condition: Stable Disposition: 01 HOME, SELF-CARE Decision to Admit: NO Decision Time: 17:09
[2018-05-13 17:16] VITALS: BP 112/70
--- NOTE | 2018-05-13 18:57 | Diagnostic Imaging Report ---
JENIFER PAEZ (EXPLOSIVE ORDNANCE TECHNICIAN) - ER [facility] [address] [address] Report Submission Date: May 13, 2018 4:23:00 PM CDT Patient Study Name: PRECIOUS SPANGLER Date: May 13, 2018 4:02:17 PM CDT Modality Type: DX Gender: F Description: SHOULDER : 82 Institution: [facility] Physician: JENIFER PAEZ (ORTEGA) - ER Examination: Plain film left shoulder History: LEFT SHOULDER, PAIN IN LEFT SHOULDER FOR ABOUT A MONTH, NO KNOWN RECENT INJURY (Hx) Comparison exams: None provided Findings: 3 views of the shoulder demonstrate normal cortical margins. No evidence for fracture or dislocation. Early acromioclavicular joint spurring. No soft tissue abnormality Impression: No acute osseous process. Electronically signed on May 13, 2018 4:23:00 PM CDT by: Joseph ESCOBEDO
== END 2018-05-13 17:14 | disposition home or self-care (01) ==
LOC: ED 14:48
DX: M25.512 Pain in left shoulder (principal)
CPT/HCPCS: 73030; 99282

== ENCOUNTER 2018-10-23 19:49 | Emergency (ER) | payer OTHER ==
[2018-10-23] MEDS ORDERED: 0.9 % SODIUM CHLORIDE 1,000 ML IV ONE (20:29)
[2018-10-23] MEDS ORDERED: KETOROLAC TROMETHAMINE 30 MG/1ML VIAL IVP ONE (20:30)
[2018-10-23] MEDS ORDERED: diphenhydrAMINE HCL 50 MG/ML VIAL IVP ONE ×2 (20:30→21:44)
[2018-10-23] MEDS ORDERED: PROMETHAZINE HCL 25 MG in 0.9 % SODIUM CHLORIDE 50 ML IV ONE (20:31)
--- NOTE | 2018-10-23 21:40 | ED Physician Documentation ---
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 pt presents to the ED via POV with c/o migraine. pain is 8/10 constant aching and frontal and similar to previous GARCIA pt tried percocet with no relief. pt denies current chest pain, dyspnea, syncope/near syncope, dizziness, visual disturbances, n/v/d, fever/chills, rash, sick contacts, dysuria, trauma. melena or hematochezia, bleeding or easy bruising, change in bowel or bladder function. anxiety or depression. ROS Negative unless otherwise specified. New Gradual Onset: Yes - ROS NEURO/PSYCH: other (headache) EYES/ENT: denies: sore throat, difficulty swallowing, sinus pain, drainage CVS/RESP: denies: chest pain, shortness of breath, cough GI/: denies: abdominal pain, diarrhea, problems urinating MS/SKIN/LYMPH: denies: muscle aches, back pain, skin lesions, swollen glands all systems neg except as marked: Yes - PAST HX Medical History: migraines, other (migraines DM2) Allergies/Adverse Reactions: Allergies Allergy/AdvReac Type Severity Reaction Status Date / Time No Known Allergies Allergy Verified 05/13/18 15:28 Home Medications: Ambulatory Orders Medication Instructions Recorded Insulin Aspart [Novolog Flexpen] 150 - 600 units SUBCUT AC15 09/28/17 Insulin Glargine,Hum.rec.anlog 40 units SQ HS 12/09/17 [Lantus Solostar] Levothyroxine Sodium [Unithroid] 100 mcg PO DAILY 12/09/17 Cyclobenzaprine HCl [Flexeril] 1 tab PO PRN PRN 03/27/18 Oxycodone HCl/Acetaminophen 1 tab PO PRN PRN 03/27/18 [Percocet 2.5/325] Gabapentin [Neurontin] 1 tab PO TID 05/13/18 - SOCIAL HX Smoking History: non-smoker Alcohol Use: none Drug Use: none - Family HX Family History: none - VITAL SIGNS Vital Signs: Vital Signs Temp Pulse Resp BP Pulse Ox 98.2 F 99 H 16 110/60 96 10/23/18 19:49 10/24/18 00:44 10/24/18 00:44 10/24/18 00:44 10/24/18 00:44 - REVIEWED ASSESSMENTS Nursing Assessment Reviewed: Yes Vitals Reviewed: Yes Progress - Progress Progress: 2219: pt reports improvement in GARCIA 03/09. reports readiness for D/C ED Results Lab/Radiology - Orders Orders: ED Orders Category Date Time Status Place IV Lock 1T Care 10/23/18 20:28 Active 0.9 % Sodium Chloride [Normal Saline] 1,000 ml Med 10/23/18 20:29 Discontinued IV Q1H Dexamethasone Sod Phosphate [Decadron] Med 10/23/18 21:44 Discontinued 4 mg IVP NOW ONE Ketorolac Tromethamine [Toradol] Med 10/23/18 20:30 Discontinued 30 mg IVP NOW ONE Promethazine HCl [Phenergan] 25 mg Med 10/23/18 20:31 Discontinued 0.9 % Sodium Chloride [Sodium Chloride] 50 ml IV NOW diphenhydrAMINE HCL [Benadryl] Med 10/23/18 20:30 Discontinued 25 mg IVP NOW ONE diphenhydrAMINE HCL [Benadryl] Med 10/23/18 21:44 Discontinued 25 mg IVP NOW ONE Headache Physical Exam - EXAM General Appearance: no acute distress, alert EENT: no facial swelling, eyes nml inspection, PERRL, nml ENT, pharynx nml, other (photophobia) Neck: normal inspection Respiratory: no resp distress, chest non-tender, breath sounds normal CVS: reg. rate & rhythm, heart sounds nml Abdomen: non-tender, no organomegaly, nml bowel sounds, no distention Skin: color nml, no rash, warm, nml palp., dry Extremitites: non-tender, normal range of motion, no evidence of injury, no edema, J, [employer] - NEURO/PSYCH Higher Functions: alert, oriented x3, nml speech, mood/affect nml Cranial: nml as tested, no evidence of acute CVA Cerebellar: nml as tested, nml gait Sensorimotor: motor nml, sensation nml Discharge Clincal Impression: Migraine Qualifiers: Migraine type: with aura Status migrainosus presence: without status migrainosus Intractability: not intractable Qualified Code(s): G43.109 - Migraine with aura, not intractable, without status migrainosus Referrals: Tiffanie Art PRN [Primary Care Provider] - 2 Days Additional Instructions: Headache - HPI Stated Complaint: migraine Chief Complaint: Headache Additional Information: 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 pt presents to the ED via POV with c/o migraine. pain is 8/10 constant aching and frontal and similar to previous GARCIA pt tried percocet with no relief. pt denies current chest pain, dyspnea, syncope/near syncope, dizziness, visual disturbances, n/v/d, fever/chills, rash, sick contacts, dysuria, trauma. melena or hematochezia, bleeding or easy bruising, change in bowel or bladder function. anxiety or depression. ROS Negative unless otherwise specified. New Gradual Onset: Yes - ROS NEURO/PSYCH: other (headache) EYES/ENT: denies: sore throat, difficulty swallowing, sinus pain, drainage CVS/RESP: denies: chest pain, shortness of breath, cough GI/: denies: abdominal pain, diarrhea, problems urinating MS/SKIN/LYMPH: denies: muscle aches, back pain, skin lesions, swollen glands all systems neg except as marked: Yes - PAST HX Medical History: migraines, other (migraines DM2) Allergies/Adverse Reactions: Allergies Allergy/AdvReac Type Severity Reaction Status Date / Time No Known Allergies Allergy Verified 05/13/18 15:28 Home Medications: Ambulatory Orders Medication Instructions Recorded Insulin Aspart [Novolog Flexpen] 150 - 600 units SUBCUT AC15 09/28/17 Insulin Glargine,Hum.rec.anlog 40 units SQ HS 12/09/17 [Lantus Solostar] Levothyroxine Sodium [Unithroid] 100 mcg PO DAILY 12/09/17 Cyclobenzaprine HCl [Flexeril] 1 tab PO PRN PRN 03/27/18 Oxycodone HCl/Acetaminophen 1 tab PO PRN PRN 03/27/18 [Percocet 2.5/325] Gabapentin [Neurontin] 1 tab PO TID 05/13/18 - SOCIAL HX Smoking History: non-smoker Alcohol Use: none Drug Use: none - Family HX Family History: none - VITAL SIGNS Vital Signs: Vital Signs Temp Pulse Resp BP Pulse Ox 98.2 F 116 H 18 107/62 94 10/23/18 19:49 10/23/18 19:49 10/23/18 19:49 10/23/18 19:49 10/23/18 19:49 - REVIEWED ASSESSMENTS Nursing Assessment Reviewed: Yes Vitals Reviewed: Yes Progress - Progress Progress: 2219: pt reports improvement in GARCIA 03/09. reports readiness for D/C ED Results Lab/Radiology - Orders Orders: ED Orders Category Date Time Status Place IV Lock 1T Care 10/23/18 20:28 Active URINE HCG [URINE HCG] Stat Lab 10/23/18 Uncollected 0.9 % Sodium Chloride [Normal Saline] 1,000 ml Med 10/23/18 20:29 Discontinued IV Q1H Dexamethasone Sod Phosphate [Decadron] Med 10/23/18 21:44 Discontinued 4 mg IVP NOW ONE Ketorolac Tromethamine [Toradol] Med 10/23/18 20:30 Discontinued 30 mg IVP NOW ONE Promethazine HCl [Phenergan] 25 mg Med 10/23/18 20:31 Discontinued 0.9 % Sodium Chloride [Sodium Chloride] 50 ml IV NOW diphenhydrAMINE HCL [Benadryl] Med 10/23/18 20:30 Discontinued 25 mg IVP NOW ONE diphenhydrAMINE HCL [Benadryl] Med 10/23/18 21:44 Discontinued 25 mg IVP NOW ONE Headache Physical Exam - EXAM General Appearance: no acute distress, alert EENT: no facial swelling, eyes nml inspection, PERRL, nml ENT, pharynx nml, other (photophobia) Neck: normal inspection Respiratory: no resp distress, chest non-tender, breath sounds normal CVS: reg. rate & rhythm, heart sounds nml Abdomen: non-tender, no organomegaly, nml bowel sounds, no distention Skin: color nml, no rash, warm, nml palp., dry Extremitites: non-tender, normal range of motion, no evidence of injury, no edema, J, [employer] - NEURO/PSYCH Higher Functions: alert, oriented x3, nml speech, mood/affect nml Cranial: nml as tested, no evidence of acute CVA Cerebellar: nml as tested, nml gait Sensorimotor: motor nml, sensation nml Discharge Clincal Impression: Migraine Qualifiers: Migraine type: with aura Status migrainosus presence: without status migrainosus Intractability: not intractable Qualified Code(s): G43.109 - Migraine with aura, not intractable, without status migrainosus Referrals: Tiffanie Art, PRN [Primary Care Provider] - 2 Days Additional Instructions: increase hydration. Take home percocet for pain Rest Follow up with primary care. obtain referral to neurologist or headache specialist seek medical care immediately if difficulty breathing, feeling faint or fainting, increased rash, chest pain, shortness of breath, or fever not controlled by tylenol/motrin, or any concern. PLEASE UNDERSTAND THAT THIS IS AN EMERGENCY EVALUATION FOR YOUR COMPLAINT AND BY NATURE IS LIMITED AND NOT A SUBSTITUTE FOR ONGOING MEDICAL CARE. EVEN THOUGH TEST RESULTS AND TREATMENT PLAN WERE EXPLAINED THERE MAY BE A NEED FOR ADDITIONAL TESTING TO FULLY DETERMINE THE EXTENT OF YOUR ILLNESS/INJURY/OR CONCERN SO YOU SHOULD CONTACT AND OR ESTABLISH WITH A PRIMARY CARE PROVIDER (OR REFERRAL DOCTOR IF APPLICABLE) FOR AN APPOINTMENT SOON POSSIBLE. Condition: Good Disposition: HOME, SELF-CARE Decision to Admit: NO Date of Decison to Admit: 10/23/18 Decision Time: 22:23 increase hydration. Take home percocet for pain Rest Follow up with primary care. obtain referral to neurologist or headache specialist seek medical care immediately if difficulty breathing, feeling faint or fainting, increased rash, chest pain, shortness of breath, or fever not controlled by tylenol/motrin, or any concern. PLEASE UNDERSTAND THAT THIS IS AN EMERGENCY EVALUATION FOR YOUR COMPLAINT AND BY NATURE IS LIMITED AND NOT A SUBSTITUTE FOR ONGOING MEDICAL CARE. EVEN THOUGH TEST RESULTS AND TREATMENT PLAN WERE EXPLAINED THERE MAY BE A NEED FOR ADDITIONAL TESTING TO FULLY DETERMINE THE EXTENT OF YOUR ILLNESS/INJURY/OR CONCERN SO YOU SHOULD CONTACT AND OR ESTABLISH WITH A PRIMARY CARE PROVIDER (OR REFERRAL DOCTOR IF APPLICABLE) FOR AN APPOINTMENT SOON POSSIBLE. Condition: Good Disposition: HOME, SELF-CARE Decision to Admit: NO Date of Decison to Admit: 10/23/18 Decision Time: 22:23
[2018-10-23] MEDS ORDERED: DEXAMETHASONE SOD PHOS 4 MG/ML VIAL IVP ONE (21:44)
[2018-10-24 00:47] VITALS: BP 110/60
== END 2018-10-23 23:20 | disposition home or self-care (01) ==
LOC: ED 19:49
DX: G43.109 Migraine with aura, not intractable, without status migrainosus (principal)
CPT/HCPCS: 96365; 96375; 96376; 99283; 99284; J1100; J1200; J1885; J2550; J7030; S1016

== ENCOUNTER 2018-11-18 23:42 | Emergency (ER) | payer OTHER ==
[2018-11-19] MEDS ORDERED: ONDANSETRON HCL/PF 4 MG/ 2ML VIAL IVP ONE (00:03)
[2018-11-19] MEDS ORDERED: 0.9 % SODIUM CHLORIDE 1,000 ML IV ONE (00:03)
--- NOTE | 2018-11-19 00:10 | ED Physician Documentation ---
General Adult - HISTORIAN Historian: patient - HPI Stated Complaint: high blood sugars Chief Complaint: General Adult Additional Information: Patient presents to ED after her father found her passed out in the car at home. Patient states she had a couple of beers tonight and was outside thinking when she fell asleep in the car. She admits to being in some emotional stress secondary to a pending court rodriguez over her son. She complains of some nausea. Past medical history of DM1. Blood sugars here are 360. Onset: hours (1) Timing: still present Severity: mild Further Comments: no - ROS CONST: denies: fever EYES/ENT: denies: problems with vision CVS/RESP: denies: chest pain, shortness of breath GI/: nausea MS/SKIN/LYMPH: none NEURO/PSYCH: denies: headache - PAST HX Past History: none Other History: diabetes Type 1 Surgeries/Procedures: none Allergies/Adverse Reactions: Allergies Allergy/AdvReac Type Severity Reaction Status Date / Time No Known Allergies Allergy Verified 11/19/18 00:05 Home Medications: Ambulatory Orders Medication Instructions Recorded Insulin Aspart [Novolog Flexpen] 150 - 600 units SUBCUT AC15 09/28/17 Insulin Glargine,Hum.rec.anlog 40 units SQ HS 12/09/17 [Lantus Solostar] Levothyroxine Sodium [Unithroid] 100 mcg PO DAILY 12/09/17 LORazepam [Ativan] 1 mg PO TID 11/19/18 Ondansetron HCl Rapdis [Zofran Odt] 4 mg PO Q8 PRN #30 tab 11/19/18 Oxycodone HCl/Acetaminophen 1 tab PO TID 11/19/18 [Oxycodone-Acetaminophen 10-325] Paroxetine HCl [Paxil] 60 mg PO D 11/19/18 Ranitidine HCl [Heartburn Relief] 150 mg PO D 11/19/18 - SOCIAL HX Smoking History: non-smoker Alcohol Use: none Drug Use: none - FAMILY HX Family History: No - VITAL SIGNS Vital Signs: Vital Signs Temp Pulse Resp BP Pulse Ox 110/60 10/24/18 00:44 - REVIEWED ASSESSMENTS Nursing Assessment Reviewed: Yes Vitals Reviewed: Yes ED Results Lab/Radiology - Orders Orders: ED Orders Category Date Time Status Place IV Lock 1T Care 11/19/18 00:03 Ordered NORMAL SALINE @ 1000 MLS/HR ( 1000ml BOLUS) Med 11/19/18 00:03 Ordered 0.9 % Sodium Chloride [Normal Saline] 1,000 ml IV Q1H Ondansetron HCl/Pf [Zofran 4 mg/2 ml] Med 11/19/18 00:03 Once 4 mg IVP NOW ONE General Adult Physical Exam - PHYSICAL EXAM GENERAL APPEARANCE: no distress EENT: ALICIA NECK: normal inspection, supple RESPIRATORY: no resp distress CVS: heart sounds normal, tachycardia ABDOMEN: soft, non-tender BACK: normal inspection SKIN: warm/dry EXTREMITIES: non-tender NEURO: oriented X3 Discharge Clincal Impression: Nausea & vomiting Qualifiers: Vomiting type: unspecified Vomiting Intractability: non-intractable Qualified Code(s): R11.2 - Nausea with vomiting, unspecified Prescriptions: Ondansetron HCl Rapdis [Zofran Odt] 4 mg PO Q8 PRN #30 tab PRN Reason: Nausea / Vomiting Referrals: Tiffanie Art, PRN [Primary Care Provider] - 2 Days Additional Instructions: 1. Take Zofran as needed for nausea 2. Stay well hydrated. Avoid alcohol and caffeine 3. Follow up with PCP within 1 week 4. Return to ED with new or worsening symptoms Condition: Stable Disposition: 01 HOME, SELF-CARE Decision to Admit: NO Date of Decison to Admit: 11/19/18 Decision Time: 01:15
[2018-11-19] MEDS ORDERED: ACETAMINOPHEN 325 MG TABLET PO ONE (00:17)
[2018-11-19 02:04] VITALS: BP 100/69
== END 2018-11-19 01:35 | disposition home or self-care (01) ==
LOC: ED 23:42
DX: R11.2 Nausea with vomiting, unspecified (principal); E10.9 Type 1 diabetes mellitus without complications; Z79.4 Long term (current) use of insulin
CPT/HCPCS: 96374; 99282; 99284; J2405; J7030; S1016

== ENCOUNTER 2018-12-02 04:34 | Emergency (ER) | payer OTHER ==
[2018-12-02] MEDS ORDERED: 0.9 % SODIUM CHLORIDE 1,000 ML IV STA ×4 (04:58→07:48)
--- NOTE | 2018-12-02 05:07 | ED Physician Documentation ---
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 pt presents to the ED c/o N/V and generalized abd pain since yesterday. pt has hx of DM. blood glucose POC here upon arrival is 395. she has not taken any insulin today. pt denies any oral intake today. pt is a/o x 3 eupneic. skin pwd. pt reports fever, chills, no oral intake today, burning with urination. pt denies current chest pain, dyspnea, syncope/near syncope, headache, dizziness, visual disturbances, rash, diarrhea, sick contacts, trauma. melena or hematochezia, bleeding or easy bruising, change in bowel or bladder function, no recent weight loss/gain, anxiety or depression. ROS Negative unless otherwise specified. - ROS CONST: fever, chills EYES/ENT: denies: problems with vision, sore throat, nasal drainage CVS/RESP: denies: chest pain, shortness of breath, cough GI/: none, problems urinating (burning). denies: abdominal pain, vomiting, nausea, diarrhea MS/SKIN/LYMPH: none. denies: rash NEURO/PSYCH: denies: headache, fainting, dizziness, tingling, numbness, difficulty walking, difficulty with speech - PAST HX Past History: other Other History: other (chronic lower back pain. aortic repair. ) Surgeries/Procedures: cholecystectomy (appy, pyloric stenosis repair as ), other (Low back ) - SOCIAL HX Smoking History: non-smoker Alcohol Use: none Drug Use: none - FAMILY HX Family History: Yes (htn) - VITAL SIGNS Vital Signs: Vital Signs Temp Pulse Resp BP Pulse Ox 100/69 11/19/18 01:51 - REVIEWED ASSESSMENTS Nursing Assessment Reviewed: Yes Vitals Reviewed: Yes <Radha Youssef - Last Filed: 12/07/18 05:08> - PAST HX Allergies/Adverse Reactions: Allergies Allergy/AdvReac Type Severity Reaction Status Date / Time No Known Allergies Allergy Verified 11/19/18 00:05 Home Medications: Ambulatory Orders Medication Instructions Recorded Insulin Aspart [Novolog Flexpen] 150 - 600 units SUBCUT AC15 09/28/17 Insulin Glargine,Hum.rec.anlog 40 units SQ HS 12/09/17 [Lantus Solostar] Levothyroxine Sodium [Unithroid] 100 mcg PO DAILY 12/09/17 LORazepam [Ativan] 1 mg PO TID 11/19/18 Ondansetron HCl Rapdis [Zofran Odt] 4 mg PO Q8 PRN #30 tab 11/19/18 Oxycodone HCl/Acetaminophen 1 tab PO TID 11/19/18 [Oxycodone-Acetaminophen 10-325] Paroxetine HCl [Paxil] 60 mg PO D 11/19/18 Ranitidine HCl [Heartburn Relief] 150 mg PO D 11/19/18 Progress - Progress Progress: 0815: care assumed waiting for transport DG 0930: 4 liters infused as per protocol of [place] admitting dr request. Florian huddleston toned for transfer DG 0940: left via ambulance DG <Magdalena Bonds - Last Filed: 12/02/18 11:27> - Progress Progress: 0705: consulted with Dr Dumont-recommended transfer for ICU care. ABG PH 7.09 CO2 13 O2 136 BE -23.7 HCO3 6.5 Metabolic Acidosis uncompensated. <Radha Youssef - Last Filed: 12/07/18 05:08> Critical Care Note - Critical Care Note Total Time (mins): 306 (entire stay) <Radha Youssef - Last Filed: 12/07/18 05:08> ED Results Lab/Radiology - Lab Results Lab Results: Lab Results 12/02/18 12/02/18 12/02/18 05:20 05:00 05:00 WBC 8.50 K/ul K/ul (4.00-12.00) RBC 5.16 M/ul M/ul (3.90-5.20) Hgb 14.0 g/dL g/dL (12.0-16.0) Hct 43.2 % % (34.5-46.5) MCV 84.0 fl fl (80.0-100.0) MCH 27.2 pg L pg (28.0-34.0) MCHC 32.4 g/dL g/dL (30.0-36.0) RDW 15.6 % H % (11.3-14.3) Plt Count 379 K/mm3 K/mm3 (130-400) Neut % (Auto) 78.7 % % (39.0-79.0) Lymph % (Auto) 15.3 % L % (16.0-50.0) [place] % (Auto) 4.8 % % (0.0-11.0) Eos % (Auto) 0.8 % % (0.0-6.8) Baso % (Auto) 0.4 (0.0-1.5) Neut # (Auto) 6.7 # k/uL # k/uL (1.4-7.7) Lymph # (Auto) 1.3 # k/uL # k/uL (0.6-4.0) [place] # (Auto) 0.4 # k/uL # k/uL (0.0-0.9) Eos # (Auto) 0.1 # k/uL # k/uL (0.0-0.6) Baso # (Auto) 0.0 # k/uL # k/uL (0.0-0.5) Sodium 130 mmol/L L mmol/L (136-145) Potassium 5.4 mmol/L H mmol/L (3.5-5.1) Chloride 99 mmol/L mmol/L (98-107) Carbon Dioxide 9 mmol/L L mmol/L (22-30) BUN 16 mg/dL mg/dL (7-17) Creatinine 0.70 mg/dL mg/dL (0.52-1.04) Estimated Creat Clear 185 Est GFR ( Amer) > 60 (60 - ) Est GFR (Non-Af Amer) > 60 (60 - ) Glucose 441 mg/dL H mg/dL (74-106) Calcium 9.3 mg/dL mg/dL (8.4-10.2) Total Bilirubin 1.6 mg/dL H mg/dL (0.2-1.3) AST 29 U/L U/L (15-46) ALT 27 U/L U/L (13-69) Alkaline Phosphatase 131 U/L H U/L (38-126) Total Protein 8.0 g/dL g/dL (6.3-8.2) Albumin 5.0 g/dL g/dL (3.5-5.0) Urine Color Yellow (YELLOW) Urine Appearance Clear (CLEAR) Urine pH 5.0 (5.0 - 8.0) Ur Specific [place] >=1.030 H (1.010-1.030) Urine Protein 1+ mg/dL H mg/dL (NEGATIVE) Urine Ketones 4+ mg/dL H mg/dL (NEGATIVE) Urine Occult Blood 1+ H (NEGATIVE) Urine Nitrite Negative (NEGATIVE) Urine Bilirubin 1+ H (NEGATIVE) Urine Urobilinogen 0.2 Eu Eu (0.2-1.0) Ur Leukocyte Esterase Negative (NEGATIVE) Urine Glucose 2+ mg/dL H mg/dL (NEGATIVE) - Orders Orders: ED Orders Category Date Time Status Place IV Lock 1T Care 12/02/18 04:56 Active Nothing Per Oral Diet 12/02/18 Breakfast Ordered CHEST 1VIEW [RAD] Stat Exams 12/02/18 Ordered ABG WITH COOX Stat Lab 12/02/18 Ordered CBC/PLATELET/DIFF Stat Lab 12/02/18 05:00 Completed CMP [CMP] Stat Lab 12/02/18 05:00 Completed INFLUENZA A&B Stat Lab 12/02/18 06:14 Ordered UA MACRO DIP ONLY Stat Lab 12/02/18 05:20 Completed 0.9 % Sodium Chloride [Normal Saline] 1,000 ml Med 12/02/18 04:58 Discontinued IV 1T 0.9 % Sodium Chloride [Normal Saline] 1,000 ml Med 12/02/18 06:30 Discontinued IV Q1H 0.9 % Sodium Chloride [Normal Saline] 1,000 ml Med 12/02/18 07:48 Active IV Q1H 0.9 % Sodium Chloride [Normal Saline] 1,000 ml Med 12/02/18 07:48 Active IV Q1H Chem Sticks Med 12/02/18 04:57 Active 1 each CHEMQID PRN Insulin Regular, Human [Humulin R] Med 12/02/18 05:48 Discontinued 10 unit SQ NOW STA Insulin Regular, Human [Humulin R] 100 unit Med 12/02/18 06:14 Active 0.9 % Sodium Chloride [Sodium Chloride] 100 ml IV 1T Levothyroxine Sodium [Synthroid] Med 12/02/18 07:00 Discontinued 100 mcg PO 0700 Ondansetron HCl/Pf [Zofran 4 mg/2 ml] Med 12/02/18 05:26 Discontinued 4 mg .ROUTE .STK-MED ONE Ondansetron HCl/Pf [Zofran 4 mg/2 ml] Med 12/02/18 05:21 Discontinued 4 mg IVP NOW STA PARoxetine HCL [Paxil] Med 12/02/18 09:00 Discontinued 60 mg PO DAILY Promethazine HCl [Phenergan] 12.5 mg Med 12/02/18 06:47 Discontinued 0.9 % Sodium Chloride [Sodium Chloride] 50 ml IV Q6 Promethazine HCl [Phenergan] 25 mg Med 12/02/18 05:45 Discontinued 0.9 % Sodium Chloride [Sodium Chloride] 50 ml IV NOW Sodium Bicarbonate Med 12/02/18 07:28 Discontinued 50 meq .ROUTE .STK-MED ONE Sodium Bicarbonate Med 12/02/18 07:51 Discontinued 50 meq IVP STAT STA Resuscitation Status Routine Oth 12/02/18 Ordered <Magdalena Bonds - Last Filed: 12/02/18 11:27> - Orders Orders: ED Orders Category Date Time Status Place IV Lock 1T Care 12/02/18 04:56 Ordered CBC/PLATELET/DIFF Stat Lab 12/02/18 04:57 Ordered CMP [CMP] Stat Lab 12/02/18 04:57 Ordered UA W/MICRO IF INDICATED Stat Lab 12/02/18 04:56 Ordered 0.9 % Sodium Chloride [Normal Saline] 1,000 ml Med 12/02/18 04:58 Ordered IV 1T Chem Sticks Med 12/02/18 04:57 Ordered 1 each CHEMQID PRN <Radha Youssef - Last Filed: 12/07/18 05:08> General Adult Physical Exam - PHYSICAL EXAM GENERAL APPEARANCE: no distress EENT: eye inspection normal NECK: normal inspection RESPIRATORY: no resp distress CVS: reg rate & rhythm SKIN: warm/dry NEURO: oriented X3 <Magdalena Bonds - Last Filed: 12/02/18 11:27> - PHYSICAL EXAM GENERAL APPEARANCE: mild distress EENT: eye inspection normal, ENT inspection normal, pharynx normal, dry mucous membranes NECK: normal inspection, thyroid normal. No: lymphadenopathy RESPIRATORY: no resp distress, chest non-tender, breath sounds normal. No: wheezes, rales, rhonchi CVS: reg rate & rhythm (tachycardic), heart sounds normal, equal pulses, no murmur, no gallop, PMI nml, no JVD, no friction rub, 24 ABDOMEN: soft, no organomegaly, normal bowel sounds, no abdominal bruit, no distension. No: tenderness, rebound, guarding BACK: normal inspection, no CVA tenderness SKIN: normal color, warm/dry, NR, INT, PAL, DR EXTREMITIES: non-tender, normal range of motion, no evidence of injury, no edema, J, [employer] NEURO: oriented X3, motor nml, sensation nml, mood/affect nml <Radha Youssef - Last Filed: 12/07/18 05:08> Discharge <Magdalena Bonds - Last Filed: 12/02/18 11:27> Decision to Admit: [id number] Date of Decison to Admit: 12/02/18 Decision Time: 06:28 <Radha Youssef - Last Filed: 12/07/18 05:08> Clincal Impression: Gastroenteritis, Hyponatremia DKA (diabetic ketoacidoses) Qualifiers: Diabetes mellitus type: other specified (including MOHSEN) Diabetes mellitus complication detail: without coma Qualified Code(s): E13.10 - Other specified diabetes mellitus with ketoacidosis without coma Referrals: Tiffanie Art, PRN [Primary Care Provider] - 2 Days Additional Instructions: [address] Mario [facility] accepted pt for transfer to ICU via ALS ground. 0759: pt remains A/o x 3 skin pwd eupneic. VSS. Condition: Fair Disposition: XFER SHT-ECU [facility]
[2018-12-02] MEDS ORDERED: ONDANSETRON HCL/PF 4 MG/ 2ML VIAL IVP STA (05:21)
[2018-12-02] MEDS ORDERED: ONDANSETRON HCL/PF 4 MG/ 2ML VIAL ONE (05:26)
[2018-12-02] MEDS ORDERED: PROMETHAZINE HCL 25 MG in 0.9 % SODIUM CHLORIDE 50 ML IV STA (05:45)
[2018-12-02] MEDS ORDERED: INSULIN REGULAR, HUMAN 100 UNIT/ML 3ML VIAL SQ STA (05:48)
[2018-12-02] MEDS ORDERED: INSULIN REGULAR, HUMAN 100 UNIT in 0.9 % SODIUM CHLORIDE 100 ML IV STA ×2 (06:14)
[2018-12-02] MEDS ORDERED: PROMETHAZINE HCL 12.5 MG in 0.9 % SODIUM CHLORIDE 50 ML IV PRN (06:47)
[2018-12-02] MEDS ORDERED: LEVOTHYROXINE SODIUM 100 MCG TABLET PO SCH (07:00)
[2018-12-02 07:15] LABS: BASOPHILS % 0.4 (0.0-1.5); EOSINOPHILS % 0.8 % (0.0-6.8); MEAN CORPUSCULAR HEMOGLOBIN 27.2 pg (28.0-34.0); MONOCYTES % 4.8 % (0.0-11.0); NEUTROPHILS # 6.7 # k/uL (1.4-7.7)
[2018-12-02 07:16] LABS: eGFR (Non-African) > 60
[2018-12-02] MEDS ORDERED: SODIUM BICARBONATE 50 MEQ/50 ML SYRINGE ONE (07:28)
[2018-12-02 07:38] LABS: APPEARANCE,URINE CLEAR (CLEAR); COLOR,URINE YELLOW (YELLOW); OCCULT BLOOD,URINE 1+ (NEGATIVE); UROBILINOGEN URINE 0.2 Eu (0.2-1.0)
[2018-12-02] MEDS ORDERED: SODIUM BICARBONATE 5 MEQ/10 ML PED. IVP STA (07:51)
[2018-12-02] MEDS ORDERED: INSULIN REGULAR, HUMAN 100 UNIT in 0.9 % SODIUM CHLORIDE 100 ML IV ONE ×2 (08:19)
[2018-12-02] MEDS ORDERED: PARoxetine HCL 10 MG TABLET PO SCH (09:00)
[2018-12-02 09:43] VITALS: BP 98/58
--- NOTE | 2018-12-02 17:21 | Diagnostic Imaging Report ---
NEIDA MADISON [facility] [address] [facility].[address] 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 COMPARISON: None available. TECHNIQUE: Single portable AP view of the chest was performed. FINDINGS: There are postoperative changes of median sternotomy. No pneumothorax, consolidative infiltrates, or pulmonary edema. The heart is not enlarged. IMPRESSION: Postoperative changes of the heart without evidence of acute intrathoracic process. Electronically signed on Dec 02, 2018 7:59:47 AM WELL DRILL OPERATOR CABLE TOOL by: Peter ESCOBEDO
[2018-12-20 08:58] LABS: ABG BASE EXCESS -23.7 (-2 - +2); ABG OXYGEN SATURATION 100 % (93-100); ABG PCO2 < 35 mmhg (35-48); ABG PO2 136 mmhg (83-108)
[2018-12-20 08:59] LABS: ABG PH 7.09 (7.35-7.45)
== END 2018-12-02 09:20 | disposition short-term general hospital (02) ==
LOC: ED 04:34 → SOUTH 06:37 → UNDOADMIN 06:37 → ED 09:20
DX: E13.11 Other specified diabetes mellitus with ketoacidosis with coma (principal); K52.9 Noninfective gastroenteritis and colitis, unspecified; E87.1 Hypo-osmolality and hyponatremia; Z79.4 Long term (current) use of insulin
CPT/HCPCS: 36415; 36600; 71045; 80053; 81002; 82803; 85025; 96365; 96366; 96375; 99285; J1815; J2405; J2550; J7030; S1016

== ENCOUNTER 2019-02-07 14:37 | Emergency (ER) | payer OTHER ==
[2019-02-07 15:04] VITALS: BP 128/80
--- NOTE | 2019-02-07 16:12 | ED Physician Documentation ---
Upper Extremity Problem - HISTORIAN Historian: patient - HPI Stated Complaint: sore throat Chief Complaint: Cough/ Upper Respiratory Associated Symptoms: denies: fever, chills Further Comments: yes (38 year old female patient present with congestion and sore throat x 13 hours. Patient requesting influenza swab, patient missed her clinic appointment and came to ER.) - ROS CONST: no problems EYES/ENT: sore throat CVS/RESP: none GI/: none MS/SKIN/LYMPH: denies: calf pain, joint pain, rash, swollen glands, leg pain, other NEURO/PSYCH: denies: headache, fainting, dizziness, anxiety, depression, other - PAST HX Past History: diabetes Type 2 Allergies/Adverse Reactions: Allergies Allergy/AdvReac Type Severity Reaction Status Date / Time No Known Allergies Allergy Verified 02/07/19 15:06 Home Medications: Ambulatory Orders Medication Instructions Recorded Insulin Aspart [Novolog Flexpen] 150 - 600 units SUBCUT AC15 09/28/17 Insulin Glargine,Hum.rec.anlog 40 units SQ HS 12/09/17 [Lantus Solostar] Levothyroxine Sodium [Unithroid] 100 mcg PO DAILY 12/09/17 LORazepam [Ativan] 1 mg PO TID 11/19/18 Ondansetron HCl Rapdis [Zofran Odt] 4 mg PO Q8 PRN #30 tab 11/19/18 Oxycodone HCl/Acetaminophen 1 tab PO TID 11/19/18 [Oxycodone-Acetaminophen 10-325] Paroxetine HCl [Paxil] 60 mg PO D 11/19/18 Ranitidine HCl [Heartburn Relief] 150 mg PO D 11/19/18 - SOCIAL HX Smoking History: non-smoker - FAMILY HX Family History: denies: none - VITAL SIGNS Vital Signs: Vital Signs Temp Pulse Resp BP Pulse Ox 98.9 F 79 19 128/80 98 02/07/19 14:59 02/07/19 16:29 02/07/19 16:29 02/07/19 14:59 02/07/19 16:29 - REVIEWED ASSESSMENTS Nursing Assessment Reviewed: Yes Vitals Reviewed: Yes Progress - Progress Progress: No influenza testing strips available today. On back order Upper Extremity Problem - EXAM General Appearance: no acute distress, alert CVS: reg rate & rhythm, heart sounds normal, equal pulses, no murmur, no gallop, PMI nml, no JVD, no friction rub, 24 Peripheral: motor nml Central: oriented X3, CN's nml as tested, motor nml, sensation nml, mood/affect nml Respiratory: no resp. distress, breath sounds nml Abdomen: non-tender, no organomegaly, nml bowel sounds, no distention Discharge Clincal Impression: Acute viral syndrome Referrals: Tiffanie Art, PRN [Primary Care Provider] - 2 Days Additional Instructions: Treat your symptoms with over the counter medication. director decision support an over the counter decongestant such as pseudoped, dayquil and Nyquil at your pharmacy. Dayquil can be taken every 4 hours. (Caution: Dayquil and Nyquil contain 325mg of tyelnol/acetaminophen per tablespoon) You may want to try Vicks rub on your chest and/or feet. Cough drops as needed for cough and sore throat. Increase your fluid intake juices, hot tea, non-caffeinated beverages Vitamin C may be helpful in decreasing the length of your cold. Use a humidifier in the room where you sleep. You can also sit in a steam filled bathroom 1-2 times a day. Tylenol every 4 hours 650mg -1000mg (do not exceed 4000mg in 24 hours) as needed for fever, pain and body aches. Alternate with Ibuprofen Ibuprofen 600-800mg every 6 hours as needed for fever, pain and body aches. See your primary care doctor if your symptoms become worse or do not improve in the next 2-3 days. Condition: Stable Disposition: 01 HOME, SELF-CARE Decision to Admit: NO Decision Time: 16:13
== END 2019-02-07 16:25 | disposition home or self-care (01) ==
LOC: ED 14:37
DX: B34.9 Viral infection, unspecified (principal)
CPT/HCPCS: 99281; 99282

== ENCOUNTER 2019-04-11 18:16 | Emergency (ER) | payer OTHER ==
--- NOTE | 2019-04-11 18:24 | ED Physician Documentation ---
General Adult - HISTORIAN Historian: patient - HPI Stated Complaint: possible dka Chief Complaint: General Adult Onset: hours (8) Timing: still present Severity: moderate Further Comments: yes (She reports at 11am she checked her sugar - not due to symptoms but she just checked - and the blood sugar was too high for her meter to read. She states she then took 10 units of her regular insulin and went on cleaning her house. She states she told her parents over the last few days she has had two episodes of diarrhea and she has had one episode of vomiting yesterday and they told her to come to the ER. She did not check her sugar after the regular and she states she has not had any food or drink since 11 (she did bring a large gas station cup) She has no other complaints she has had DKA several times) - ROS CONST: denies: recent illness EYES/ENT: none CVS/RESP: none GI/: nausea, diarrhea (x 2 episodes ) MS/SKIN/LYMPH: none NEURO/PSYCH: headache - PAST HX Past History: other (DM 1 ) Immunizations: UTD Allergies/Adverse Reactions: Allergies Allergy/AdvReac Type Severity Reaction Status Date / Time No Known Allergies Allergy Verified 04/11/19 18:53 Home Medications: Ambulatory Orders Medication Instructions Recorded Insulin Aspart [Novolog Flexpen] 150 - 600 units SUBCUT AC15 09/28/17 Insulin Glargine,Hum.rec.anlog 40 units SQ HS 12/09/17 [Lantus Solostar] Levothyroxine Sodium [Unithroid] 100 mcg PO DAILY 12/09/17 LORazepam [Ativan] 1 mg PO TID 11/19/18 Oxycodone HCl/Acetaminophen 1 tab PO TID 11/19/18 [Oxycodone-Acetaminophen 10-325] Ranitidine HCl [Heartburn Relief] 150 mg PO D 11/19/18 Gabapentin [Neurontin] 300 mg PO TID 04/11/19 Lamotrigine [Subvenite] 150 mg PO 04/11/19 Promethazine HCl [Phenergan] 25 mg PO Q6 PRN 04/11/19 Sertraline HCl 100 mg PO 04/11/19 - SOCIAL HX Smoking History: non-smoker Alcohol Use: none Drug Use: none - FAMILY HX Family History: No - VITAL SIGNS Vital Signs: Vital Signs Temp Pulse Resp BP Pulse Ox 128/80 02/07/19 14:59 - REVIEWED ASSESSMENTS Nursing Assessment Reviewed: Yes Vitals Reviewed: Yes Progress - Progress Progress: 1930: She states her stomach is burning slightly. No nausea. No urge for vomiting or diarrhea. DG 1948: She is asking why no phenergan - but she had complaint of acid /burning feeling rather than nausea. No chest pain. DG 1999: she states she is feeling better DG 2024: requesting to call her father to pick her up DG General Adult Physical Exam - PHYSICAL EXAM GENERAL APPEARANCE: no distress EENT: eye inspection normal, ENT inspection normal, no signs of dehydration, ALICIA NECK: normal inspection RESPIRATORY: no resp distress, chest non-tender, breath sounds normal CVS: reg rate & rhythm, heart sounds normal, equal pulses ABDOMEN: soft, normal bowel sounds, no distension BACK: normal inspection SKIN: warm/dry, normal color EXTREMITIES: non-tender, normal range of motion, no evidence of injury, no edema NEURO: oriented X3, CN's nml as tested, motor nml, sensation nml, mood/affect nml, cognition normal Discharge Clincal Impression: Poorly controlled type 1 diabetes mellitus Referrals: Tiffanie Art, PRN [Primary Care Provider] - 2 Days Comments: 1. Take your meds 2> Check blood sugars closely tonight 3. Watch for symptoms of increasing sugar 4. Zofran 4 mg take 1 by mouth every 8 hours as needed for nausea 5. See PCP in 2 days 6. Return to ER for any increased concerns Condition: Stable Disposition: 01 HOME, SELF-CARE Decision to Admit: NO Date of Decison to Admit: 04/11/19 Decision Time: 20:29
[2019-04-11] MEDS ORDERED: 0.9 % SODIUM CHLORIDE 1,000 ML IV ONE (18:44)
[2019-04-11] MEDS ORDERED: INSULIN REGULAR, HUMAN 100 UNIT/ML 3ML VIAL IV ONE (18:45)
[2019-04-11 18:53] LABS: BASOPHILS % 0.4 % (0.0-1.5); EOSINOPHILS % 1.1 % (0.0-6.8); MEAN CORPUSCULAR HEMOGLOBIN 28.5 pg (28.0-34.0); MONOCYTES % 6.6 % (0.0-11.0); NEUTROPHILS # 5.3 # k/uL (1.4-7.7)
[2019-04-11 19:07] LABS: eGFR (Non-African) > 60
[2019-04-11] MEDS ORDERED: SALINE FLUSH IVP ONE (19:14)
[2019-04-11] MEDS ORDERED: PANTOPRAZOLE SODIUM IVP ONE (19:14)
[2019-04-11 20:43] VITALS: BP 107/62
== END 2019-04-11 20:38 | disposition home or self-care (01) ==
LOC: ED 18:16
DX: E10.65 Type 1 diabetes mellitus with hyperglycemia (principal); Z79.4 Long term (current) use of insulin
CPT/HCPCS: 36415; 36600; 80053; 82803; 85025; 96374; 99283; 99284; J1815; J7030; S1016

== ENCOUNTER 2019-07-06 12:28 | Emergency (ER) | payer OTHER ==
[2019-07-06] MEDS ORDERED: 0.9 % SODIUM CHLORIDE 2,000 ML IV ONE (12:53)
[2019-07-06] MEDS ORDERED: INSULIN REGULAR, HUMAN 100 UNIT/ML 10ML VIAL ONE (12:58)
[2019-07-06] MEDS ORDERED: 0.9 % SODIUM CHLORIDE 1,000 ML IV ONE ×2 (13:03→14:11)
[2019-07-06 13:18] LABS: BASOPHILS % 0.3 % (0.0-1.5); NEUTROPHILS # 10.3 # k/uL (1.4-7.7)
[2019-07-06 13:25] LABS: eGFR (Non-African) > 60
[2019-07-06] MEDS ORDERED: INSULIN REGULAR, HUMAN 100 UNIT/ML 10ML VIAL IV ONE ×2 (13:41→16:20)
[2019-07-06] MEDS ORDERED: PROMETHAZINE HCL 25 MG in 0.9 % SODIUM CHLORIDE 50 ML IV ONE (13:52)
--- NOTE | 2019-07-06 13:52 | ED Physician Documentation ---
General Adult - HISTORIAN Historian: patient - HPI Stated Complaint: Fatigue/Hyperglycemia Chief Complaint: General Adult Onset: hours Timing: still present Severity: moderate Further Comments: yes (Pt is a 39 yo female with hx DMI and hx DKA who has had weakness and hyperglycemia. Pt has an insulin pump, but it may not be working properly. Pt has been nauseated and has had a headache yesterday. No recent illness. No cough/URI; no UTI sx.) - ROS CONST: weakness EYES/ENT: none CVS/RESP: none GI/: nausea MS/SKIN/LYMPH: none NEURO/PSYCH: headache (yesterday) - PAST HX Past History: other (DMI, Hx DKA; HTN; Thyroid dz; depression.) Allergies/Adverse Reactions: Allergies Allergy/AdvReac Type Severity Reaction Status Date / Time No Known Allergies Allergy Verified 07/06/19 13:12 Home Medications: Ambulatory Orders Medication Instructions Recorded Insulin Aspart [Novolog Flexpen] 150 - 600 units SUBCUT AC15 09/28/17 Insulin Glargine,Hum.rec.anlog 40 units SQ HS 12/09/17 [Lantus Solostar] Levothyroxine Sodium [Unithroid] 100 mcg PO DAILY 12/09/17 LORazepam [Ativan] 1 mg PO TID 11/19/18 Oxycodone HCl/Acetaminophen 1 tab PO TID 11/19/18 [Oxycodone-Acetaminophen 10-325] Ranitidine HCl [Heartburn Relief] 150 mg PO D 11/19/18 Gabapentin [Neurontin] 300 mg PO TID 04/11/19 Lamotrigine [Subvenite] 150 mg PO DAILY 04/11/19 Sertraline HCl 100 mg PO DAILY 04/11/19 - SOCIAL HX Smoking History: other (unknown smoking hx) - FAMILY HX Family History: No - VITAL SIGNS Vital Signs: Vital Signs Temp Pulse Resp BP Pulse Ox 118 H 16 114/67 100 07/06/19 12:35 07/06/19 12:35 07/06/19 12:35 07/06/19 12:35 - REVIEWED ASSESSMENTS Nursing Assessment Reviewed: Yes Vitals Reviewed: Yes Progress - Progress Progress: NS 1 L x 2 Phenergan 25 mg in IVF Insulin regular 10 units Glucose 500 --> 300 NS 1 L Insulin regular 5 units Glucose --> 165 Drink plenty of fluids. Monitor your blood glucose level tonight. Follow up with primary provider in the morning re insulin pump and dosing. Return to ER if you have concerns. - EKG/XRAY/CT EKG: rhythm (Sinus tachycardia, ZV=153; incomplete RBBB.) ED Results Lab/Radiology - Lab Results Lab Results: Lab Results 07/06/19 07/06/19 13:18 13:18 WBC 11.70 K/ul K/ul (4.00-12.00) RBC 4.63 M/ul M/ul (3.90-5.20) Hgb 13.3 g/dL g/dL (11.5-16.0) Hct 39.4 % % (34.5-46.5) MCV 85.0 fl fl (80.0-100.0) MCH 28.7 pg pg (28.0-34.0) MCHC 33.7 g/dL g/dL (30.0-36.0) RDW 13.2 % % (11.3-14.3) Plt Count 271 K/mm3 K/mm3 (130-400) Neut % (Auto) 88.2 % H % (39.0-79.0) Lymph % (Auto) 7.7 % L % (16.0-50.0) [place] % (Auto) 2.4 % % (0.0-11.0) Eos % (Auto) 1.4 % % (0.0-6.8) Baso % (Auto) 0.3 % % (0.0-1.5) Neut # (Auto) 10.3 # k/uL H # k/uL (1.4-7.7) Lymph # (Auto) 0.9 # k/uL # k/uL (0.6-4.0) [place] # (Auto) 0.3 # k/uL # k/uL (0.0-0.9) Eos # (Auto) 0.2 # k/uL # k/uL (0.0-0.6) Baso # (Auto) 0.0 # k/uL # k/uL (0.0-0.5) Sodium 133 mmol/L L mmol/L (137-145) Potassium 5.1 mmol/L mmol/L (3.5-5.1) Chloride 97 mmol/L L mmol/L (98-107) Carbon Dioxide 15 mmol/L L mmol/L (22-30) Anion Gap 26.1 BUN 14 mg/dL mg/dL (7-17) Creatinine 0.63 mg/dL mg/dL (0.52-1.04) Est GFR ( Amer) > 60 (60 - ) Est GFR (Non-Af Amer) > 60 (60 - ) Glucose 582 mg/dL H mg/dL (74-106) Calcium 9.2 mg/dL mg/dL (8.4-10.2) Total Bilirubin 1.4 mg/dL H mg/dL (0.2-1.3) AST 32 U/L U/L (15-46) ALT 13 U/L U/L (13-69) Alkaline Phosphatase 89 U/L U/L (38-126) Total Protein 7.6 g/dL g/dL (6.3-8.2) Albumin 4.5 g/dL g/dL (3.5-5.0) - Orders Orders: ED Orders Category Date Time Status Place IV Lock 1T Care 07/06/19 13:08 Active CBC/PLATELET/DIFF Routine Lab 07/06/19 13:18 Completed CMP [CMP] Routine Lab 07/06/19 13:18 Completed UA [URINALYSIS] Routine Lab 07/06/19 Ordered VENOUS BLOOD GAS Stat Lab 07/06/19 Ordered 0.9 % Sodium Chloride [Normal Saline] 1,000 ml Med 07/06/19 13:03 Active IV Q1H 0.9 % Sodium Chloride [Normal Saline] 2,000 ml Med 07/06/19 12:53 Discontinued IV .STK-MED Insulin Regular, Human [NovoLIN R] Med 07/06/19 12:58 Discontinued 1,000 unit .ROUTE .STK-MED ONE Insulin Regular, Human [NovoLIN R] Med 07/06/19 13:41 Discontinued 10 unit IV NOW ONE General Adult Physical Exam - PHYSICAL EXAM GENERAL APPEARANCE: moderate distress EENT: dry mucous membranes NECK: normal inspection, supple RESPIRATORY: no resp distress, chest non-tender, breath sounds normal CVS: tachycardia ABDOMEN: soft, no organomegaly, normal bowel sounds BACK: normal inspection, no CVA tenderness SKIN: warm/dry, normal color EXTREMITIES: non-tender, normal range of motion, no evidence of injury NEURO: oriented X3, motor nml, sensation nml Discharge Clincal Impression: Hyperglycemia due to type 1 diabetes mellitus, Dehydration Referrals: Loi Oreilly MD [Primary Care Provider] - Condition: Stable Disposition: 01 HOME, SELF-CARE Decision to Admit: NO Decision Time: 20:44
[2019-07-06 14:38] LABS: APPEARANCE,URINE CLEAR (CLEAR); COLOR,URINE YELLOW (YELLOW); OCCULT BLOOD,URINE NEGATIVE (NEGATIVE); UROBILINOGEN URINE 0.2 Eu (0.2-1.0)
[2019-07-06 15:31] LABS: eGFR (Non-African) > 60
[2019-07-06] MEDS ORDERED: 0.9 % SODIUM CHLORIDE 1,000 ML IV SCH (17:15)
[2019-07-06 17:23] LABS: BASOPHILS % 0.4 % (0.0-1.5); NEUTROPHILS # 6.9 # k/uL (1.4-7.7)
[2019-07-06 17:32] LABS: eGFR (Non-African) > 60
[2019-07-06] MEDS ORDERED: 0.9 % SODIUM CHLORIDE 500 ML IV ONE (19:15)
[2019-07-06 21:03] VITALS: BP 119/68
== END 2019-07-06 21:02 | disposition home or self-care (01) ==
LOC: ED 12:28
DX: E10.65 Type 1 diabetes mellitus with hyperglycemia (principal); E86.0 Dehydration
CPT/HCPCS: 36415; 80053; 81002; 85025; 85379; 96361; 96374; 96376; 99282; 99284; J2550; J7060; J7030; S1016